=== PATIENT | male | born 1990 | race Caucasian/White ===

== ENCOUNTER 2023-02-18 12:05 | Inpatient (IN) | payer OTHER ==
--- NOTE | 2023-02-18 12:32 | ED ---
General Adult HPI - General Source: RN notes reviewed <Carolyn Agustin - Last Filed: 02/18/23 16:20> <Filipe Adams - Last Filed: 02/18/23 17:51> - General Stated complaint: swollen groin area Time Seen by Provider: 02/18/23 12:27 - History of Present Illness Initial comments: 32-year-old male presents to the emergency Department chief complaint of bilateral leg swelling. Patient reports bilateral leg swelling and genital swelling. Denies shortness of breath, cough, fever, nausea, vomiting, chest pain, palpitations, abdominal pain, melena, hematochezia, hematemesis. He r eports that he recently stopped drinking alcohol and thats when His symptoms began. Patient repeatedly denies daily alcohol use. He denies any significant known past medical history. (Carolyn Agustin) - Related Data Allergies Allergy/AdvReac Type Severity Reaction Status Date / Time No Known Allergies Allergy Verified 02/18/23 17:38 Review of Systems ROS Other: All systems not noted in ROS Statement are negative. <Carolyn Agustin - Last Filed: 02/18/23 16:20> ROS Other: All systems not noted in ROS Statement are negative. <Filipe Adams - Last Filed: 02/18/23 17:51> ROS Statement: Those systems with pertinent positive or pertinent negative responses have been documented in the HPI. General Exam <Carolyn Agustin - Last Filed: 02/18/23 16:20> - General Exam Comments Initial Comments: Visual Physical Exam Vital signs reviewed General: Well-appearing, nontoxic, no acute distress. Head: Normocephalic, atraumatic Eyes: PERRLA, EOMI ENT: Airway patent Chest: Nonlabored breathing Skin: No visual rash, normal skin tone Neuro: Alert and oriented 3 Musculoskeletal: No gross abnormalities I performed the quick note portion of this exam, verbal signature Carolyn Agustin PA-C General: Alert, in no acute distress, Jaundice Head: atraumatic normocephalic. Eyes PERRL, EOMI intact, mucous membranes moist Respiratory: Lungs clear to auscultation bilaterally Cardiovascular: Tachycardic Abdominal: Soft without guarding or rebound Extremities: Normal inspection with full range of motion and normal capillary refill Neuroogic: alert and oriented 3, CN II-XII intact, able to ambulate with steady gait Skin: warm dry and intact with normal color (Carolyn Agustin) Course <Carolyn Agustin - Last Filed: 02/18/23 16:20> Vital Signs 02/18/23 12:26 Temperature 97.9 F Pulse Rate 113 H Respiratory 18 Rate Blood Pressure 121/58 O2 Sat by Pulse 100 Oximetry - Reevaluation(s) Reevaluation #1: 02/18/23 16:11 Patient reevaluated. Rectal exam performed. No gross blood in the rectal vault. (Carolyn Agustin) Reevaluation #2: 02/18/23 16:20 Case discussed with FERNANDO Sun who agrees and assumes the care of the patient pending disposition. (Carolyn Agustin) EKG Findings - EKG Comments: EKG Findings:: Abdomen following: EKG performed at 14:30 1310 101 bpm and sinus tachycardia. FL interval 136, QRS ratio 102, QT/QTc 383/441 <Carolyn Agustin - Last Filed: 02/18/23 16:20> Medical Decision Making - Lab Data Result diagrams: 02/18/23 12:35 02/18/23 12:35 <Carolyn Agustin - Last Filed: 02/18/23 16:20> - Lab Data Result diagrams: 02/18/23 12:35 02/18/23 12:35 <Filipe Adams - Last Filed: 02/18/23 17:51> - Medical Decision Making Was pt. sent in by a medical professional or institution (, PA, CARGO WORKER, urgent care, hospital, or half-way...) When possible be specific @ -[No] Did you speak to anyone other than the patient for history (EMS, parent, family, police, friend...)? What history was obtained from this source @ -[No] Did you review nursing and triage notes (agree or disagree)? Why? @ -[I reviewed and agree with nursing and triage notes] Were old charts reviewed (outside hosp., previous admission, EMS record, old EKG, old radiological studies, urgent care reports/EKG's, half-way records)? Report findings @ -[No old charts were reviewed] Differential Diagnosis (chest pain, altered mental status, abdominal pain women, abdominal pain men, vaginal bleeding, weakness, fever, dyspnea, syncope, headache, dizziness, GI bleed, back pain, seizure, CVA, palpatations, mental health, musculoskeletal)? @ -[not applicable] EKG interpreted by me (3pts min.). @ -[As above] X-rays interpreted by me (1pt min.). @ -[None done] CT interpreted by me (1pt min.). @ -[None done] U/S interpreted by me (1pt. min.). @ -yes What testing was considered but not performed or refused? (CT, X-rays, U/S, labs)? Why? @ -[None] What meds were considered but not given or refused? Why? @ -[None] Did you discuss the management of the patient with other professionals (professionals i.e. , PA, CARGO WORKER, lab, RT, psych nurse, director of social work, narrow gauge brakeman, teacher, driver's license reviewing officer, corrections caseworker)? Give summary @ -[No] Was smoking cessation discussed for >3mins.? @ -[No] Was critical care preformed (if so, how long)? @ -[No] Were there social determinants of health that impacted care today? How? (Homelessness, low income, unemployed, alcoholism, drug addiction, transportation, low edu. Level, literacy, decrease access to med. care, [facility], rehab)? @ -[No] Was there de-escalation of care discussed even if they declined (Discuss DNR or withdrawal of care, Hospice)? DNR status @ -[No] What co-morbidities impacted this encounter? (DM, HTN, Smoking, COPD, CAD, Cancer, CVA, ARF, Chemo, Hep., AIDS, mental health diagnosis, sleep apnea, morbid obesity)? @ -Daily alcohol use Was patient admitted / discharged? Hospital course, mention meds given and route, prescriptions, significant lab abnormalities, going to OR and other pertinent info. Disposition pending. This is a 32-year-old male who presents the emergency department with L leg edema. Patient had a thorough history and physical exam performed. Patient appears jaundiced however in no acute distress. Bilateral lower extremities including genitals with edema. Patient initially tachycardic however all other vital signs stable Patient had laboratory studies which revealed WBC 4.0 hemoglobin 5.4 hematocrit 20.2 platelets 21.9 PT 17.5, INR 1.8 sodium 139, potassium 2.0 BUN 4, creatinine 0.65 initial lactic acid 2.1 total bilirubin 3.2 alk phos 258 BNP 145, albumin 2.4. Ultrasound of the liver reveals hepatic cirrhosis with steatosis and small amount of abdominal ascites I discussed initial results with the patient. All questions were addressed. One unit of blood ordered, patient given oral potassium. Case will be signed out to Dr. Adams who will assume care of the patient pending additional laboratory studies. (Carolyn Agustin) Patient reevaluated by myself, Dr. Adams. Patient resting comfortably in bed. Patient does have lower body edema. Patient is updated on results and plan. Patient has anemia. Occult negative. Patient will receive blood transfusion. Case was discussed in detail with practitioner Erica, who will admit covering Dr. Kauffman. Diagnosis: Anemia, leg edema Acute, acute (Filipe Adams) - Lab Data Lab Results 02/18/23 02/18/23 02/18/23 Range/Units 12:35 12:35 12:35 WBC 4.0 (3.8-10.6) k/uL RBC 2.79 L (4.30-5.90) m/uL Hgb 5.4 L* (13.0-17.5) gm/dL Hct 20.2 L (39.0-53.0) % MCV 72.5 L (80.0-100.0) fL MCH 19.2 L (25.0-35.0) pg MCHC 26.5 L (31.0-37.0) g/dL RDW 21.9 H (11.5-15.5) % Plt Count 85 L (150-450) k/uL MPV 7.2 Neutrophils % 47 % Lymphocytes % 36 % Monocytes % 9 % Eosinophils % 5 % Basophils % 1 % Neutrophils # 1.8 (1.3-7.7) k/uL Lymphocytes # 1.4 (1.0-4.8) k/uL Monocytes # 0.3 (0-1.0) k/uL Eosinophils # 0.2 (0-0.7) k/uL Basophils # 0.0 (0-0.2) k/uL Manual Slide Review Performed Hypochromasia Marked Poikilocytosis (manual Present Anisocytosis Moderate Microcytosis Marked PT 17.5 H (9.0-12.0) sec INR 1.8 H (<1.2) APTT 29.5 (22.0-30.0) sec Sodium 139 (137-145) mmol/L Potassium 3.0 L (3.5-5.1) mmol/L Chloride 107 (98-107) mmol/L Carbon Dioxide 24 (22-30) mmol/L Anion Gap 8 mmol/L BUN 4 L (9-20) mg/dL Creatinine 0.65 L (0.66-1.25) mg/dL Est GFR (CKD-EPI)AfAm >90 (>60 ml/min/1.73 sqM) Est GFR (CKD-EPI)NonAf >90 (>60 ml/min/1.73 sqM) Glucose 110 H (74-99) mg/dL Lactic Ac Sepsis Rflx Plasma Lactic Acid Daron (0.7-2.0) mmol/L Calcium 7.7 L (8.4-10.2) mg/dL Total Bilirubin 3.2 H (0.2-1.3) mg/dL AST 91 H (17-59) U/L ALT 28 (4-49) U/L Alkaline Phosphatase 258 H (38-126) U/L NT-Pro-B Natriuret Pep 145 pg/mL Total Protein 6.4 (6.3-8.2) g/dL Albumin 2.4 L (3.5-5.0) g/dL Stool Occult Blood (Negative) Blood Type Blood Type Confirm Blood Type Recheck Bld Type Recheck Status Antibody Screen Spec Expiration Date 02/18/23 02/18/23 02/18/23 Range/Units 14:25 14:32 14:52 WBC (3.8-10.6) k/uL RBC (4.30-5.90) m/uL Hgb (13.0-17.5) gm/dL Hct (39.0-53.0) % MCV (80.0-100.0) fL MCH (25.0-35.0) pg MCHC (31.0-37.0) g/dL RDW (11.5-15.5) % Plt Count (150-450) k/uL MPV Neutrophils % % Lymphocytes % % Monocytes % % Eosinophils % % Basophils % % Neutrophils # (1.3-7.7) k/uL Lymphocytes # (1.0-4.8) k/uL Monocytes # (0-1.0) k/uL Eosinophils # (0-0.7) k/uL Basophils # (0-0.2) k/uL Manual Slide Review Hypochromasia Poikilocytosis (manual Anisocytosis Microcytosis PT (9.0-12.0) sec INR (<1.2) APTT (22.0-30.0) sec Sodium (137-145) mmol/L Potassium (3.5-5.1) mmol/L Chloride (98-107) mmol/L Carbon Dioxide (22-30) mmol/L Anion Gap mmol/L BUN (9-20) mg/dL Creatinine (0.66-1.25) mg/dL Est GFR (CKD-EPI)AfAm (>60 ml/min/1.73 sqM) Est GFR (CKD-EPI)NonAf (>60 ml/min/1.73 sqM) Glucose (74-99) mg/dL Lactic Ac Sepsis Rflx Plasma Lactic Acid Daron 2.1 H* (0.7-2.0) mmol/L Calcium (8.4-10.2) mg/dL Total Bilirubin (0.2-1.3) mg/dL AST (17-59) U/L ALT (4-49) U/L Alkaline Phosphatase (38-126) U/L NT-Pro-B Natriuret Pep pg/mL Total Protein (6.3-8.2) g/dL Albumin (3.5-5.0) g/dL Stool Occult Blood (Negative) Blood Type B Positive Blood Type Confirm B Positive Blood Type Recheck No Previous Record Bld Type Recheck Status CABO Indicated Antibody Screen NEGATIVE Spec Expiration Date 02/21/2023 - 232402/18/23 02/18/23 Range/Units 15:45 16:15 WBC (3.8-10.6) k/uL RBC (4.30-5.90) m/uL Hgb (13.0-17.5) gm/dL Hct (39.0-53.0) % MCV (80.0-100.0) fL MCH (25.0-35.0) pg MCHC (31.0-37.0) g/dL RDW (11.5-15.5) % Plt Count (150-450) k/uL MPV Neutrophils % % Lymphocytes % % Monocytes % % Eosinophils % % Basophils % % Neutrophils # (1.3-7.7) k/uL Lymphocytes # (1.0-4.8) k/uL Monocytes # (0-1.0) k/uL Eosinophils # (0-0.7) k/uL Basophils # (0-0.2) k/uL Manual Slide Review Hypochromasia Poikilocytosis (manual Anisocytosis Microcytosis PT (9.0-12.0) sec INR (<1.2) APTT (22.0-30.0) sec Sodium (137-145) mmol/L Potassium (3.5-5.1) mmol/L Chloride (98-107) mmol/L Carbon Dioxide (22-30) mmol/L Anion Gap mmol/L BUN (9-20) mg/dL Creatinine (0.66-1.25) mg/dL Est GFR (CKD-EPI)AfAm (>60 ml/min/1.73 sqM) Est GFR (CKD-EPI)NonAf (>60 ml/min/1.73 sqM) Glucose (74-99) mg/dL Lactic Ac Sepsis Rflx Y Plasma Lactic Acid Daron (0.7-2.0) mmol/L Calcium (8.4-10.2) mg/dL Total Bilirubin (0.2-1.3) mg/dL AST (17-59) U/L ALT (4-49) U/L Alkaline Phosphatase (38-126) U/L NT-Pro-B Natriuret Pep pg/mL Total Protein (6.3-8.2) g/dL Albumin (3.5-5.0) g/dL Stool Occult Blood Negative (Negative) Blood Type Blood Type Confirm Blood Type Recheck Bld Type Recheck Status Antibody Screen Spec Expiration Date Disposition <Carolyn Agustin - Last Filed: 02/18/23 16:20> Is patient prescribed a controlled substance at d/c from ED?: No Time of Disposition: 17:51 <Filipe Adams - Last Filed: 02/18/23 17:51> Clinical Impression: Cirrhosis, Bilateral leg edema, Anemia Disposition: ADMITTED IP TO THIS HOSP Referrals: Nonstaff,Physician [Primary Care Provider] - 1-2 days
[2023-02-18 12:48] LABS: Anisocytosis Moderate; Basophils % (A) 1 %; Eosinophils # (A) 0.2 k/uL (0-0.7); Eosinophils % (A) 5 %; HCT 20.2 % (39.0-53.0); Hypochromasia Marked; Lymphocytes # (A) 1.4 k/uL (1.0-4.8); Lymphocytes % (A) 36 %; MCH 19.2 pg (25.0-35.0); MCHC 26.5 g/dL (31.0-37.0); MCV 72.5 fL (80.0-100.0); Mean Platelet Volume 7.2; Microcytosis Marked; Monocytes # (A) 0.3 k/uL (0-1.0); Monocytes % (A) 9 %; Neutrophils # (A) 1.8 k/uL (1.3-7.7); Neutrophils % (A) 47 %; RBC 2.79 m/uL (4.30-5.90); RDW 21.9 % (11.5-15.5)
[2023-02-18 13:02] LABS: INR 1.8 (<1.2); Partial Thromboplastin Time 29.5 sec (22.0-30.0); Prothrombin Time 17.5 sec (9.0-12.0)
[2023-02-18 13:08] LABS: ALT 28 U/L (4-49); AST 91 U/L (17-59); African American GFR (CKD) >90 (>60 ml/min/1.73 sqM); Albumin 2.4 g/dL (3.5-5.0); Alkaline Phosphatase 258 U/L (38-126); Anion Gap 8 mmol/L; Blood Urea Nitrogen 4 mg/dL (9-20); Calcium 7.7 mg/dL (8.4-10.2); Carbon Dioxide 24 mmol/L (22-30); Chloride 107 mmol/L (98-107); Glucose 110 mg/dL (74-99); Non-African American GFR(CKD) >90 (>60 ml/min/1.73 sqM); Sodium 139 mmol/L (137-145); Total Bilirubin 3.2 mg/dL (0.2-1.3); Total Protein 6.4 g/dL (6.3-8.2)
[2023-02-18 13:15] LABS: NT-Pro-B-Type Natriuretic Pept 145 pg/mL
[2023-02-18 13:29] LABS: HGB 5.4 gm/dL (13.0-17.5)
[2023-02-18 14:30] LABS: Platelet Count 85 k/uL (150-450)
[2023-02-18 14:36] LABS: Poikilocytosis (M) Present
--- NOTE | 2023-02-18 16:01 | US ---
EXAMINATION TYPE: US liver DATE OF EXAM: 02/18/2023 COMPARISON: NONE CLINICAL INDICATION: Male, 32 years old with history of Elevated liver enzymes; Elevated liver enzyme s Exam limitations due to body habitus. TECHNIQUE: Multiple sonographic images of the right upper quadrant are obtained. FINDINGS: EXAM MEASUREMENTS: Liver Length: 16.9 cm Gallbladder Wall: .5 cm CBD: .5 cm Right Kidney: 9.4 x 4.2 x 5.3 cm Pancreas: Obscured by bowel gas Liver: Increased attenuation limited ascites seen. Nodular contour no suspicious observations. Gallbladder: Stones visualized Evidence for sonographic Arevalo's sign: No CBD: Limited due to bowel gas Right Kidney: No hydronephrosis or masses seen IMPRESSION: 1. Hepatic cirrhosis with steatosis and small abdominal ascites, correlate for liver failure. 2. Cholelithiasis.
[2023-02-18] MEDS ORDERED: POTASSIUM CHLORIDE ER 20 MEQ TAB.ER PO STA (16:18)
[2023-02-18] MEDS ORDERED: NALOXONE 0.4 MG/ML 1 ML VIAL IV PRN (17:52)
[2023-02-18 18:09] LABS: Albumin 2.3 g/dL (3.5-5.0); Magnesium 1.6 mg/dL (1.6-2.3); Total Protein 6.5 g/dL (6.3-8.2)
[2023-02-18 18:32] LABS: Reticulocyte % 2.3 % (0.5-2.0)
[2023-02-18] MEDS: PANTOPRAZOLE 40 MG/10 ML VIAL IV SCH (20:43)
[2023-02-19 02:52] LABS: Ferritin 9.3 ng/mL (22.0-322.0)
[2023-02-19] MEDS: PANTOPRAZOLE 40 MG/10 ML VIAL IV SCH (08:05)
[2023-02-19 11:30] LABS: Anisocytosis Moderate; HCT 24.8 % (39.0-53.0); Hypochromasia Marked; MCH 22.5 pg (25.0-35.0); MCHC 28.4 g/dL (31.0-37.0); Microcytosis Moderate; Poikilocytosis Marked; RBC 3.14 m/uL (4.30-5.90); WBC 3.5 k/uL (3.8-10.6)
[2023-02-19 11:39] LABS: ALT 25 U/L (4-49); AST 68 U/L (17-59); African American GFR (CKD) >90 (>60 ml/min/1.73 sqM); Alkaline Phosphatase 172 U/L (38-126); Anion Gap 7 mmol/L; Blood Urea Nitrogen 5 mg/dL (9-20); Calcium 7.5 mg/dL (8.4-10.2); Carbon Dioxide 23 mmol/L (22-30); Chloride 105 mmol/L (98-107); Glucose 143 mg/dL (74-99); Non-African American GFR(CKD) >90 (>60 ml/min/1.73 sqM); Potassium 3.1 mmol/L (3.5-5.1); Sodium 135 mmol/L (137-145); Total Bilirubin 4.5 mg/dL (0.2-1.3); Total Protein 5.7 g/dL (6.3-8.2)
[2023-02-19] MEDS ORDERED: POTASSIUM CHLORIDE ER 20 MEQ TAB.ER PO STA (11:48)
--- NOTE | 2023-02-19 12:00 | P.HPIM ---
History of Present Illness 32-year-old male with a history of chronic alcoholism drinks about to 5 mixed drinks a day, last drink was couple days ago, denied any history of alcohol withdrawals came in with the complaints of bilateral leg swelling and scrotal e melody has been going on for last few days without any shortness of breath, orthopnea proximal nocturnal dyspnea. Patient denied any abdominal pain. Patient denied any hematemesis hematochezia or hemoptysis. Patient is found to have elevated INR 1.8, ultrasound of the liver showed gallstones. Patient denied any nausea vomiting. Patient globin is elevated to around 3. Patient is also hypokalemic with magnesium of 1.6. Patient is found to have hemoglobin of 5.6 microcytic, patient is also pancytopenic REVIEW OF SYSTEMS: CONSTITUTIONAL: No fever, no malaise, no fatigue. HEENT: No recent visual problems or hearing problems. Denied any sore throat. CARDIOVASCULAR: No chest pain, orthopnea, PND, no palpitations, no syncope. PULMONARY: No shortness of breath, no cough, no hemoptysis. GASTROINTESTINAL: No diarrhea, no nausea, no vomiting, no abdominal pain. NEUROLOGICAL: No headaches, no weakness, no numbness. HEMATOLOGICAL: Denies any bleeding or petechiae. GENITOURINARY: Denies any burning micturition, frequency, or urgency. MUSCULOSKELETAL/RHEUMATOLOGICAL: Denies any joint pain, swelling, or any muscle pain. ENDOCRINE: Denies any polyuria or polydipsia. The rest of the 14-point review of systems is negative. PHYSICAL EXAMINATION: GENERAL: The patient is alert and oriented x3, not in any acute distress. Well developed, well nourished. HEENT: Pupils are round and equally reacting to light. EOMI. does have scleral icterus. Does have conjunctival pallor. Normocephalic, atraumatic. No pharyngeal erythema. No thyromegaly. CARDIOVASCULAR: S1 and S2 present. No murmurs, rubs, or gallops. PULMONARY: Chest is clear to auscultation, no wheezing or crackles. ABDOMEN: Soft, nontender, nondistended, normoactive bowel sounds. No palpable organomegaly. Mild abdominal ascites MUSCULOSKELETAL: No joint swelling or deformity. EXTREMITIES: No cyanosis, clubbing, or significant bilateral scrotal swelling NEUROLOGICAL: Gross neurological examination did not reveal any focal deficits. SKIN: No rashes. Assessment and plan -Scrotal edema, anasarca: Secondary to volume more about from alcoholic cirrhosis. Extensive alcohol cessation counseling was provided. Patient was started on IV Lasix and replace potassium and magnesium. -Hypomagnesemia: Secondary to alcoholism -Hypokalemia secondary to alcoholism and hypomagnesemia potassium will be replaced expected to be low tomorrow because of IV Lasix. -Alcohol dependence: Counseling was provided do not expect any withdrawals for the patient. -Pancytopenia secondary to liver disease, will obtain B12 and folate levels -Microcytic anemia probably nutritional iron Deficiency denied any GI bleed at this time, we'll obtain ferritin and TIBC DVT prophylaxis: Early ambulation, will not require thoracotomy due to prophylaxis as patient is not anticoagulated with INR of 1.8 Past Medical History Additional Past Medical History / Comment(s): alcoholism History of Any Multi-Drug Resistant Organisms: None Reported Past Surgical History: No Surgical Hx Reported Past Anesthesia/Blood Transfusion Reactions: No Reported Reaction Past Psychological History: No Psychological Hx Reported Smoking Status: Current every day smoker Past Alcohol Use History: Abuse, Daily Past Drug Use History: None Reported Medications and Allergies Home Medications Medication Instructions Recorded Confirmed Type No Known Home Medications 02/18/23 02/18/23 History Allergies Allergy/AdvReac Type Severity Reaction Status Date / Time No Known Allergies Allergy Verified 02/18/23 17:38 Physical Exam Vitals: Vital Signs Temp Pulse Pulse Resp BP BP Pulse Ox 02/19/23 07:58 98.0 F 95 17 141/78 98 02/19/23 04:00 92 16 138/80 100 02/19/23 02:32 88 16 144/80 99 02/19/23 00:00 93 17 127/77 100 02/18/23 23:18 95 16 132/78 02/18/23 22:58 98.2 F 76 17 124/74 02/18/23 22:42 98.1 F 101 H 16 145/76 100 02/18/23 20:27 98.1 F 83 18 144/78 100 02/18/23 19:40 98 19 159/63 99 02/18/23 19:09 98.0 F 93 18 152/75 99 02/18/23 18:49 98.2 F 95 18 143/79 100 02/18/23 18:39 98.3 F 92 18 130/70 100 02/18/23 18:00 96 18 128/68 100 02/18/23 15:00 92 18 130/74 98 02/18/23 14:00 94 18 136/86 99 02/18/23 12:26 97.9 F 113 H 18 121/58 100 Intake and Output 02/18/23 02/19/23 02/19/23 22:59 06:59 14:59 Intake Total 310 310 180 Balance 310 310 180 Intake: Oral 180 Blood Product 310 310 Rc As-1 Unit 310 [id number] Rc As-1 Unit 0 310 [id number] Other: Voiding Method Toilet Toilet # Voids 1 1 Weight 86.183 kg 108 kg Results CBC & Chem 7: 02/18/23 12:35 02/19/23 09:40 Labs: Abnormal Lab Results - Last 24 Hours (Table) 02/18/23 02/18/23 02/18/23 Range/Units 12:35 12:35 12:35 RBC 2.79 L (4.30-5.90) m/uL Hgb 5.4 L* (13.0-17.5) gm/dL Hct 20.2 L (39.0-53.0) % MCV 72.5 L (80.0-100.0) fL MCH 19.2 L (25.0-35.0) pg MCHC 26.5 L (31.0-37.0) g/dL RDW 21.9 H (11.5-15.5) % Plt Count 85 L (150-450) k/uL Retic Count (0.5-2.0) % PT 17.5 H (9.0-12.0) sec INR 1.8 H (<1.2) Sodium (137-145) mmol/L Potassium 3.0 L (3.5-5.1) mmol/L BUN 4 L (9-20) mg/dL Creatinine 0.65 L (0.66-1.25) mg/dL Glucose 110 H (74-99) mg/dL Plasma Lactic Acid Daron (0.7-2.0) mmol/L Calcium 7.7 L (8.4-10.2) mg/dL Iron (65-175) UG/DL Ferritin (22.0-322.0) ng/mL Total Bilirubin 3.2 H (0.2-1.3) mg/dL Delta Bilirubin (0.0-0.2) mg/dL AST 91 H (17-59) U/L Alkaline Phosphatase 258 H (38-126) U/L Total Protein (6.3-8.2) g/dL Albumin 2.4 L (3.5-5.0) g/dL Crossmatch 02/18/23 02/18/23 02/18/23 Range/Units 12:35 14:25 14:52 RBC (4.30-5.90) m/uL Hgb (13.0-17.5) gm/dL Hct (39.0-53.0) % MCV (80.0-100.0) fL MCH (25.0-35.0) pg MCHC (31.0-37.0) g/dL RDW (11.5-15.5) % Plt Count (150-450) k/uL Retic Count 2.3 H (0.5-2.0) % PT (9.0-12.0) sec INR (<1.2) Sodium (137-145) mmol/L Potassium (3.5-5.1) mmol/L BUN (9-20) mg/dL Creatinine (0.66-1.25) mg/dL Glucose (74-99) mg/dL Plasma Lactic Acid Daron 2.1 H* (0.7-2.0) mmol/L Calcium (8.4-10.2) mg/dL Iron (65-175) UG/DL Ferritin (22.0-322.0) ng/mL Total Bilirubin (0.2-1.3) mg/dL Delta Bilirubin (0.0-0.2) mg/dL AST (17-59) U/L Alkaline Phosphatase (38-126) U/L Total Protein (6.3-8.2) g/dL Albumin (3.5-5.0) g/dL Crossmatch See Detail 02/18/23 02/18/23 02/18/23 Range/Units 16:01 16:28 18:29 RBC (4.30-5.90) m/uL Hgb (13.0-17.5) gm/dL Hct (39.0-53.0) % MCV (80.0-100.0) fL MCH (25.0-35.0) pg MCHC (31.0-37.0) g/dL RDW (11.5-15.5) % Plt Count (150-450) k/uL Retic Count (0.5-2.0) % PT (9.0-12.0) sec INR (<1.2) Sodium (137-145) mmol/L Potassium (3.5-5.1) mmol/L BUN (9-20) mg/dL Creatinine (0.66-1.25) mg/dL Glucose (74-99) mg/dL Plasma Lactic Acid Daron 2.4 H* (0.7-2.0) mmol/L Calcium (8.4-10.2) mg/dL Iron 9 L (65-175) UG/DL Ferritin 9.3 L (22.0-322.0) ng/mL Total Bilirubin 3.0 H (0.2-1.3) mg/dL Delta Bilirubin 2.0 H (0.0-0.2) mg/dL AST 85 H (17-59) U/L Alkaline Phosphatase 253 H (38-126) U/L Total Protein (6.3-8.2) g/dL Albumin 2.3 L (3.5-5.0) g/dL Crossmatch 02/19/23 Range/Units 09:40 RBC (4.30-5.90) m/uL Hgb (13.0-17.5) gm/dL Hct (39.0-53.0) % MCV (80.0-100.0) fL MCH (25.0-35.0) pg MCHC (31.0-37.0) g/dL RDW (11.5-15.5) % Plt Count (150-450) k/uL Retic Count (0.5-2.0) % PT (9.0-12.0) sec INR (<1.2) Sodium 135 L (137-145) mmol/L Potassium 3.1 L (3.5-5.1) mmol/L BUN 5 L (9-20) mg/dL Creatinine 0.61 L (0.66-1.25) mg/dL Glucose 143 H (74-99) mg/dL Plasma Lactic Acid Daron (0.7-2.0) mmol/L Calcium 7.5 L (8.4-10.2) mg/dL Iron (65-175) UG/DL Ferritin (22.0-322.0) ng/mL Total Bilirubin 4.5 H (0.2-1.3) mg/dL Delta Bilirubin (0.0-0.2) mg/dL AST 68 H (17-59) U/L Alkaline Phosphatase 172 H (38-126) U/L Total Protein 5.7 L (6.3-8.2) g/dL Albumin 2.0 L (3.5-5.0) g/dL Crossmatch Thrombosis Risk Factor Assmnt - Choose All That Apply Any of the Below Risk Factors Present?: Yes Each Factor Represents 1 point: Swollen legs (current) Other Risk Factors: No Other congenital or acquired thrombophilia - If yes, enter type in comment: No Thrombosis Risk Factor Assessment Total Risk Factor Score: 1 Thrombosis Risk Factor Assessment Level: Low Risk
[2023-02-19 12:39] LABS: Platelet Count 74 k/uL (150-450)
[2023-02-19 12:40] LABS: MCV 79.1 fL (80.0-100.0)
[2023-02-19] MEDS: FUROSEMIDE 10 MG/ML 4 ML VIAL IV SCH ×2 (12:41→20:30)
[2023-02-19 14:04] LABS: Basophils # (M) 0.04 k/uL (0-0.2); Eosinophils # (M) 0.18 k/uL (0-0.7); Lymphocytes # (M) 0.98 k/uL (1.0-4.8); Monocytes # (M) 0.25 k/uL (0-1.0); Neutrophils # (M) 2.07 k/uL (1.3-7.7); Neutrophils % (M) 59 %; Nucleated Red Blood Cells 0 /100 WBC (0-0); Total Cells Counted 100
[2023-02-19 16:44] LABS: % Iron Saturation 19.05 (15.00-50.00)
[2023-02-20 04:41] VITALS: RESP 18
[2023-02-20] MEDS: FUROSEMIDE 10 MG/ML 4 ML VIAL IV SCH (07:36)
[2023-02-20] MEDS: PANTOPRAZOLE 40 MG/10 ML VIAL IV SCH (07:36)
[2023-02-20 08:43] LABS: Anisocytosis Moderate; HCT 30.6 % (39.0-53.0); Hypochromasia Marked; MCH 22.3 pg (25.0-35.0); MCHC 28.9 g/dL (31.0-37.0); MCV 77.1 fL (80.0-100.0); Mean Platelet Volume 7.3; Microcytosis Moderate; Poikilocytosis Marked; RBC 3.97 m/uL (4.30-5.90); RDW 21.7 % (11.5-15.5); WBC 4.8 k/uL (3.8-10.6)
[2023-02-20 08:44] LABS: HGB 8.9 gm/dL (13.0-17.5)
[2023-02-20 08:45] LABS: Platelet Count 89 k/uL (150-450)
[2023-02-20 08:53] LABS: ALT 26 U/L (4-49); AST 73 U/L (17-59); African American GFR (CKD) >90 (>60 ml/min/1.73 sqM); Albumin 2.3 g/dL (3.5-5.0); Alkaline Phosphatase 190 U/L (38-126); Anion Gap 9 mmol/L; Blood Urea Nitrogen 5 mg/dL (9-20); Calcium 8.1 mg/dL (8.4-10.2); Carbon Dioxide 25 mmol/L (22-30); Chloride 102 mmol/L (98-107); Glucose 93 mg/dL (74-99); Non-African American GFR(CKD) >90 (>60 ml/min/1.73 sqM); Potassium 3.2 mmol/L (3.5-5.1); Sodium 136 mmol/L (137-145); Total Bilirubin 6.3 mg/dL (0.2-1.3); Total Protein 6.6 g/dL (6.3-8.2)
[2023-02-20] MEDS ORDERED: Potassium Replacement Protocol 1 EACH MISC MISCELLANE PRN (10:01)
[2023-02-20] MEDS: POTASSIUM CHLORIDE ER 20 MEQ TAB.ER PO SCH ×4 (10:20→15:35)
[2023-02-20 13:10] VITALS: BP 136/84; PULSE 95; TEMP 98.2
== END 2023-02-20 18:05 | disposition home or self-care (01) | DRG 433 ==
LOC: EC 12:05 → 3SCARD 17:52
PROVIDERS: ADMIT Hospitalist; ATTEND Hospitalist
DX: K70.31 Alcoholic cirrhosis of liver with ascites (principal); D61.818 Other pancytopenia; K80.20 Calculus of gallbladder without cholecystitis without obstruction; N50.89 Other specified disorders of the male genital organs; R79.1 Abnormal coagulation profile; E83.42 Hypomagnesemia; E87.6 Hypokalemia; F10.20 Alcohol dependence, uncomplicated; F17.210 Nicotine dependence, cigarettes, uncomplicated; Z71.41 Alcohol abuse counseling and surveillance of alcoholic; D53.9 Nutritional anemia, unspecified
CPT/HCPCS: 36415; 36430; 76705; 80053; 80076; 82272; 82607; 82728; 82746; 83540; 83550; 83605; 83735; 83880; 85025; 85027; 85045; 85610; 85730; 86850; 86900; 86901; 86920; 99285

== ENCOUNTER 2024-08-06 06:41 | Inpatient (IN) | payer OTHER ==
--- NOTE | 2024-08-06 07:48 | XR ---
EXAMINATION TYPE: XR chest 2V DATE OF EXAM: 08/06/2024 7:44 AM COMPARISON: None TECHNIQUE: XR chest 2V Frontal and lateral views of the chest. CLINICAL INDICATION:Male, 33 years old with history of sob; FINDINGS: Lungs/Pleura: There is no evidence of pleural effusion, focal consolidation, or pneumothorax. Pulmonary vascularity: Unremarkable. Heart/mediastinum: Cardiomediastinal silhouette is unremarkable. Musculoskeletal: No acute osseous pathology. IMPRESSION: No acute cardiopulmonary disease/process. [facility], , 08/06/2024 7:46 AM
--- NOTE | 2024-08-06 08:35 | ED ---
SOB HPI - General Chief Complaint: Shortness of Breath Stated Complaint: RITU Time Seen by Provider: 08/06/24 07:48 Source: patient Mode of arrival: ambulatory Limitations: no limitations - History of Present Illness Initial Comments: 33-year-old male with past medical history of alcohol abuse who presents to the emergency department reporting shortness of breath. States this started last night. He was having difficulties laying flat to sleep. He does report that he was hospitalized several years ago for rapid heart rate and was placed on 2 medications to "help his heart". He knows that one of them was a water pill. He stopped taking them several years ago without direction by a physician. He does admit to continued drinking. States his last drink was on Friday and he drinks approximately 3/4th of 5th of alcohol. He does have intermittent swelling of his lower extremities. Denies any significant abdominal distention. No chest pain. No abdominal pain. no nausea or vomiting. Denies fevers, chills or cough. No history of DVT or PE. No calf pain. No other alleviating, precipitating or modifying factors - Related Data Previous Rx's Medication Instructions Recorded Furosemide [Lasix] 40 mg PO DAILY #30 tablet 02/20/23 Spironolactone [Aldactone] 25 mg PO DAILY #30 tablet 02/20/23 Allergies Allergy/AdvReac Type Severity Reaction Status Date / Time No Known Allergies Allergy Verified 08/06/24 07:00 Review of Systems ROS Statement: Those systems with pertinent positive or pertinent negative responses have been documented in the HPI. ROS Other: All systems not noted in ROS Statement are negative. Past Medical History Additional Past Medical History / Comment(s): alcoholism , edema, jaundice History of Any Multi-Drug Resistant Organisms: None Reported Past Surgical History: Adenoidectomy Additional Past Surgical History / Comment(s): cyst Past Anesthesia/Blood Transfusion Reactions: No Reported Reaction Past Psychological History: No Psychological Hx Reported Smoking Status: Vaper Past Alcohol Use History: Abuse, Daily Past Drug Use History: None Reported General Exam Limitations: no limitations Course Vital Signs 08/06/24 08/06/24 07:00 09:05 Temperature 97.6 F Pulse Rate 96 75 Respiratory 18 19 Rate Blood Pressure 169/77 138/113 O2 Sat by Pulse 99 98 Oximetry Medical Decision Making - Medical Decision Making Was pt. sent in by a medical professional or institution (Dr., PA, MACHINE DESIGN ENGINEER, urgent care, hospital, or penitentiary...) When possible be specific @ -[No] Did you speak to anyone other than the patient for history (EMS, parent, family, police, friend...)? What history was obtained from this source @ -[No] Did you review nursing and triage notes (agree or disagree)? Why? @ -[I reviewed and agree with nursing and triage notes] Were old charts reviewed (outside hosp., previous admission, EMS record, old EKG, old radiological studies, urgent care reports/EKG's, penitentiary records)? Report findings @ -[No old charts were reviewed] Differential Diagnosis (chest pain, altered mental status, abdominal pain women, abdominal pain men, vaginal bleeding, weakness, fever, dyspnea, syncope, headache, dizziness, GI bleed, back pain, seizure, CVA, palpatations, mental health, musculoskeletal)? @ -[not applicable] EKG interpreted by me (3pts min.). @ -Yes and demonstrates sinus rhythm with a rate of 79. [place] interval 174. QRS 111. QTc of 463. No acute ST segment elevations or depressions X-rays interpreted by me (1pt min.). @ -[None done] CT interpreted by me (1pt min.). @ -[None done] U/S interpreted by me (1pt. min.). @ -[None done] What testing was considered but not performed or refused? (CT, X-rays, U/S, labs)? Why? @ -[None] What meds were considered but not given or refused? Why? @ -[None] Did you discuss the management of the patient with other professionals (professionals i.e. JAY Xiong, MACHINE DESIGN ENGINEER, lab, RT, psych nurse, web content & social media manager, seafood technology specialist, teacher, campus security officer, telephonic nurse case manager)? Give summary @ -[No] Was smoking cessation discussed for >3mins.? @ -[No] Was critical care preformed (if so, how long)? @ -[No] Were there social determinants of health that impacted care today? How? (Homelessness, low income, unemployed, alcoholism, drug addiction, transportation, low edu. Level, literacy, decrease access to med. care, prison, rehab)? @ -[No] Was there de-escalation of care discussed even if they declined (Discuss DNR or withdrawal of care, Hospice)? DNR status @ -[No] What co-morbidities impacted this encounter? (DM, HTN, Smoking, COPD, CAD, Cancer, CVA, ARF, Chemo, Hep., AIDS, mental health diagnosis, sleep apnea, morbid obesity)? @ -[None] Was patient admitted / discharged? Hospital course, mention meds given and route, prescriptions, significant lab abnormalities, going to OR and other p ertinent info. @ -[hospital course] Undiagnosed new problem with uncertain prognosis? @ -[No] Drug Therapy requiring intensive monitoring for toxicity (Heparin, Nitro, Insulin, Cardizem)? @ -[No] Were any procedures done? @ -[No] Diagnosis/symptom? @ -[default] Acute, or Chronic, or Acute on Chronic? @ -[default] Uncomplicated (without systemic symptoms) or Complicated (systemic symptoms)? @ -[default] Side effects of treatment? @ -[No] Exacerbation, Progression, or Severe Exacerbation? @ -[No] Poses a threat to life or bodily function? How? (Chest pain, [place], [place], pneumonia, PE, COPD, DKA, ARF, appy, cholecystitis, CVA, Diverticulitis, Homicidal, Suicidal, threat to staff... and all critical care pts) @ -[No] - Lab Data Result diagrams: 08/06/24 08:08 08/06/24 08:08 Lab Results 08/06/24 08/06/24 08/06/24 Range/Units 08:08 08:08 08:08 WBC 3.9 (3.8-10.6) k/uL RBC 3.68 L (4.30-5.90) m/uL Hgb 9.5 L (13.0-17.5) gm/dL Hct 30.3 L (39.0-53.0) % MCV 82.4 (80.0-100.0) fL MCH 25.7 (25.0-35.0) pg MCHC 31.2 (31.0-37.0) g/dL RDW 20.9 H (11.5-15.5) % Plt Count 23 L (150-450) k/uL MPV 7.6 Neutrophils % 58 % Lymphocytes % 23 % Monocytes % 12 % Eosinophils % 2 % Basophils % 1 % Neutrophils # 2.2 (1.3-7.7) k/uL Lymphocytes # 0.9 L (1.0-4.8) k/uL Monocytes # 0.5 (0-1.0) k/uL Eosinophils # 0.1 (0-0.7) k/uL Basophils # 0.0 (0-0.2) k/uL Manual Slide Review Performed Hypochromasia Marked Anisocytosis Moderate Anisocytosis (manual) Present Microcytosis Slight Target Cells Present PT 22.4 H (10.0-12.5) sec INR 2.2 H (<1.2) APTT 38.2 H (22.0-30.0) sec Sodium 136 L (137-145) mmol/L Potassium 2.8 L (3.5-5.1) mmol/L Chloride 99 (98-107) mmol/L Carbon Dioxide 30 (22-30) mmol/L Anion Gap 7 mmol/L BUN 8 L (9-20) mg/dL Creatinine 0.72 (0.66-1.25) mg/dL Est GFR (CKD-EPI)AfAm >90 (>60 ml/min/1.73 sqM) Est GFR (CKD-EPI)NonAf >90 (>60 ml/min/1.73 sqM) Glucose 133 H (74-99) mg/dL Calcium 7.9 L (8.4-10.2) mg/dL Total Bilirubin 9.1 H (0.2-1.3) mg/dL AST 164 H (17-59) U/L ALT 49 (4-49) U/L Alkaline Phosphatase 394 H (38-126) U/L Troponin I (0.000-0.034) ng/mL NT-Pro-B Natriuret Pep 102 pg/mL Total Protein 6.4 (6.3-8.2) g/dL Albumin 2.5 L (3.5-5.0) g/dL Serum Alcohol 88 mg/dL 08/06/24 Range/Units 08:08 WBC (3.8-10.6) k/uL RBC (4.30-5.90) m/uL Hgb (13.0-17.5) gm/dL Hct (39.0-53.0) % MCV (80.0-100.0) fL MCH (25.0-35.0) pg MCHC (31.0-37.0) g/dL RDW (11.5-15.5) % Plt Count (150-450) k/uL MPV Neutrophils % % Lymphocytes % % Monocytes % % Eosinophils % % Basophils % % Neutrophils # (1.3-7.7) k/uL Lymphocytes # (1.0-4.8) k/uL Monocytes # (0-1.0) k/uL Eosinophils # (0-0.7) k/uL Basophils # (0-0.2) k/uL Manual Slide Review Hypochromasia Anisocytosis Anisocytosis (manual) Microcytosis Target Cells PT (10.0-12.5) sec INR (<1.2) APTT (22.0-30.0) sec Sodium (137-145) mmol/L Potassium (3.5-5.1) mmol/L Chloride (98-107) mmol/L Carbon Dioxide (22-30) mmol/L Anion Gap mmol/L BUN (9-20) mg/dL Creatinine (0.66-1.25) mg/dL Est GFR (CKD-EPI)AfAm (>60 ml/min/1.73 sqM) Est GFR (CKD-EPI)NonAf (>60 ml/min/1.73 sqM) Glucose (74-99) mg/dL Calcium (8.4-10.2) mg/dL Total Bilirubin (0.2-1.3) mg/dL AST (17-59) U/L ALT (4-49) U/L Alkaline Phosphatase (38-126) U/L Troponin I 0.058 H* (0.000-0.034) ng/mL NT-Pro-B Natriuret Pep pg/mL Total Protein (6.3-8.2) g/dL Albumin (3.5-5.0) g/dL Serum Alcohol mg/dL Disposition Clinical Impression: Elevated troponin, Alcoholic cirrhosis of liver Disposition: ADMITTED IP TO THIS HOSP Condition: Stable Is patient prescribed a controlled substance at d/c from ED?: No Referrals: None,Stated [Primary Care Provider] - 1-2 days Time of Disposition: 10:14 Decision to Admit Reason: Admit from EC Decision Date: 08/06/24 Decision Time: 10:14
[2024-08-06 09:27] LABS: Anisocytosis Moderate; Basophils % (A) 1 %; Eosinophils # (A) 0.1 k/uL (0-0.7); Eosinophils % (A) 2 %; HCT 30.3 % (39.0-53.0); HGB 9.5 gm/dL (13.0-17.5); Hypochromasia Marked; Lymphocytes # (A) 0.9 k/uL (1.0-4.8); Lymphocytes % (A) 23 %; MCH 25.7 pg (25.0-35.0); MCHC 31.2 g/dL (31.0-37.0); MCV 82.4 fL (80.0-100.0); Mean Platelet Volume 7.6; Microcytosis Slight; Monocytes # (A) 0.5 k/uL (0-1.0); Monocytes % (A) 12 %; Neutrophils # (A) 2.2 k/uL (1.3-7.7); Neutrophils % (A) 58 %; RBC 3.68 m/uL (4.30-5.90); RDW 20.9 % (11.5-15.5); WBC 3.9 k/uL (3.8-10.6)
[2024-08-06 09:32] LABS: ALT 49 U/L (4-49); AST 164 U/L (17-59); African American GFR (CKD) >90 (>60 ml/min/1.73 sqM); Albumin 2.5 g/dL (3.5-5.0); Alkaline Phosphatase 394 U/L (38-126); Anion Gap 7 mmol/L; Blood Urea Nitrogen 8 mg/dL (9-20); Calcium 7.9 mg/dL (8.4-10.2); Carbon Dioxide 30 mmol/L (22-30); Chloride 99 mmol/L (98-107); Glucose 133 mg/dL (74-99); Non-African American GFR(CKD) >90 (>60 ml/min/1.73 sqM); Potassium 2.8 mmol/L (3.5-5.1); Sodium 136 mmol/L (137-145); Total Bilirubin 9.1 mg/dL (0.2-1.3); Total Protein 6.4 g/dL (6.3-8.2)
[2024-08-06 09:40] LABS: Alcohol 88 mg/dL; NT-Pro-B-Type Natriuretic Pept 102 pg/mL
[2024-08-06 09:54] LABS: INR 2.2 (<1.2); Partial Thromboplastin Time 38.2 sec (22.0-30.0); Prothrombin Time 22.4 sec (10.0-12.5)
[2024-08-06 10:00] LABS: Target Cells Present
[2024-08-06 10:02] LABS: Anisocytosis (M) Present; Platelet Count 23 k/uL (150-450)
[2024-08-06] MEDS ORDERED: ONDANSETRON 4 MG/2 ML VIAL IVP PRN (10:14)
[2024-08-06] MEDS ORDERED: NALOXONE 0.4 MG/ML 1 ML VIAL IV PRN (10:14)
[2024-08-06] MEDS: POTASSIUM CHLORIDE ER 20 MEQ TAB.ER PO STA (11:20)
[2024-08-06] MEDS: POTASSIUM CHLORIDE 20 MEQ in WATER FOR INJECTION 1 100ML.BAG IVPB STA (11:21)
[2024-08-06 11:22] LABS: Bilirubin, Conjugated 2.3 mg/dL (0.0-0.3); Bilirubin, Delta 2.8 mg/dL (0.0-0.2); Bilirubin,Unconjugated 3.3 mg/dL (0.0-1.1); Total Bilirubin 8.4 mg/dL (0.2-1.3)
--- NOTE | 2024-08-06 12:22 | P.CRDCN ---
History of Present Illness History of present illness: HISTORY OF PRESENT ILLNESS: This is a 33-year-old male with a past medical history significant for alcohol abuse. Patient does not follow with a electrical system specialist. We have been asked to see th e patient in consultation for shortness of breath. Patient examined at the bedside in the emergency room. Patient presented to the hospital with a chief complaint of shortness of breath. Patient states he has been feeling short of breath for 1 day. He denies any chest pain or pressure. Patient reports daily alcohol use and states his last drink was yesterday. DIAGNOSTICS: - EKG reveals sinus mechanism with no signs of acute ischemia. - Chest xray negative for acute process - Laboratory data: WBC 3.9. Hemoglobin 9.5. Platelet count 23. INR 2.2. Sodium 136. Potassium 2.8. BUN 8. Creatinine 0.72. Magnesium 1.0. AST 164. ALT 49. Troponin 0.058. Serum alcohol 88. proBNP 102. - Current home cardiac medications include none -No previous echocardiogram, stress test, or cardiac catheterization available in EMR for review REVIEW OF SYSTEMS: At the time of my exam: CONSTITUTIONAL: Denies fever or chills. HEENT: Denies blurred vision, vision changes, or eye pain. Denies hemoptysis CARDIOVASCULAR: Denies chest pain. Denies orthopnea. Denies PND. Denies palpitations RESPIRATORY: Denies shortness of breath. GASTROINTESTINAL: Denies abdominal pain. Denies nausea or vomiting. HEMATOLOGIC: Denies bleeding disorders. GENITOURINARY: Denies any blood in urine. SKIN: Denies pruitis. Denies rash. PHYSICAL EXAM: VITAL SIGNS: Reviewed. GENERAL: Well-developed in no acute distress. HEENT: Head is normocephalic. Pupils are equal, round. Sclerae anicteric. Mucous membranes of the mouth are moist. Neck supple. No JVD or thyromegaly LUNGS: Respirations even and unlabored. Lungs essentially clear to auscultation bilaterally. HEART: Regular rate and rhythm. S1 and S2 heard. ABDOMEN: Soft. Nondistended. Nontender. EXTREMITIES: Normal range of motion. No clubbing or cyanosis. Peripheral pulses intact. No lower extremity edema NEUROLOGIC: Awake and alert. Oriented x 3. ASSESSMENT: Shortness of breath x 1 day, no evidence of CHF, proBNP within normal limits Anemia Severe thrombocytopenia, platelet count 23 Coagulopathy, INR 2.2, secondary to alcohol abuse Hypokalemia 2.8 on admission Hypomagnesemia, 1.0 on admission Transaminitis, secondary to alcohol abuse Minimally elevated troponin of unclear clinical significance, no evidence of myocardial injury or ischemia History of alcohol abuse PLAN: Obtain 2D echo to assess cardiac structure and function No evidence of congestive heart failure upon clinical examination. Chest x-ray without signs of CHF. proBNP within normal limits at 102. Recommend abstinence from alcohol Further recommendations pending patient course Nurse practitioner note has been reviewed by physician. Signing provider agrees with the documented findings, assessment, and plan of care documented by ORTHO/PROSTHETIC AIDE as a scribe. Past Medical History Additional Past Medical History / Comment(s): alcoholism , edema, jaundice History of Any Multi-Drug Resistant Organisms: None Reported Past Surgical History: Adenoidectomy Additional Past Surgical History / Comment(s): cyst Past Anesthesia/Blood Transfusion Reactions: No Reported Reaction Past Psychological History: No Psychological Hx Reported Smoking Status: Vaper Past Alcohol Use History: Abuse, Daily Past Drug Use History: None Reported Medications and Allergies Home Medications Medication Instructions Recorded Confirmed Type No Known Home Medications 08/06/24 08/06/24 History Allergies Allergy/AdvReac Type Severity Reaction Status Date / Time No Known Allergies Allergy Verified 08/06/24 11:26 Physical Exam Vitals: Vital Signs Temp Pulse Resp BP Pulse Ox 08/06/24 11:00 91 17 146/81 98 08/06/24 09:05 75 19 138/113 98 08/06/24 07:00 97.6 F 96 18 169/77 99 Intake and Output 08/05/24 08/06/24 08/06/24 22:59 06:59 14:59 Other: Weight 99.065 kg Results 08/06/24 08:08 08/06/24 08:08 Cardiac Enzymes 08/06/24 08/06/24 Range/Units 08:08 08:08 AST 164 H (17-59) U/L Troponin I 0.058 H* (0.000-0.034) ng/mL Coagulation 08/06/24 Range/Units 08:08 PT 22.4 H (10.0-12.5) sec APTT 38.2 H (22.0-30.0) sec CBC 08/06/24 Range/Units 08:08 WBC 3.9 (3.8-10.6) k/uL RBC 3.68 L (4.30-5.90) m/uL Hgb 9.5 L (13.0-17.5) gm/dL Hct 30.3 L (39.0-53.0) % Plt Count 23 L (150-450) k/uL Comprehensive Metabolic Panel 08/06/24 08/06/24 Range/Units 08:08 08:08 Sodium 136 L (137-145) mmol/L Potassium 2.8 L (3.5-5.1) mmol/L Chloride 99 (98-107) mmol/L Carbon Dioxide 30 (22-30) mmol/L BUN 8 L (9-20) mg/dL Creatinine 0.72 (0.66-1.25) mg/dL Glucose 133 H (74-99) mg/dL Calcium 7.9 L (8.4-10.2) mg/dL Unconjugated Bilirubin 3.3 H (0.0-1.1) mg/dL AST 164 H (17-59) U/L ALT 49 (4-49) U/L Alkaline Phosphatase 394 H (38-126) U/L Total Protein 6.4 (6.3-8.2) g/dL Albumin 2.5 L (3.5-5.0) g/dL Current Medications Generic Name Dose Route Start Last Admin Trade Name Freq PRN Reason Stop Dose Admin Potassium Chloride 20 meq/ IV 100 mls @ 50 mls/hr 08/06/24 10:23 08/06/24 11:21 Solution IVPB 08/06/24 12:22 50 mls/hr ONCE STA Administration Naloxone HCl 0.2 mg 08/06/24 10:14 Naloxone 0.4 Mg/Ml 1 Ml Vial IV Q2M PRN Opioid Reversal Ondansetron HCl 4 mg 08/06/24 10:14 Ondansetron 4 Mg/2 Ml Vial IVP Q8HR PRN Nausea And Vomiting Intake and Output 08/05/24 08/06/24 08/06/24 22:59 06:59 14:59 Other: Weight 99.065 kg Patient Weight 08/07/24 06:59 Weight 99.065 kg 08/06/24 08:08 08/06/24 08:08
[2024-08-06] MEDS ORDERED: LORazepam 2 MG/ML INJ IV PRN (12:45)
--- NOTE | 2024-08-06 12:47 | P.HPIM ---
History of Present Illness This is a pleasant 33 years old male with history of alcohol use disorder presents with alcohol withdrawal and alcohol intoxication. Serum alcohol was elevated 88 on admission and patient states that he drinks fifth of alcohol every day but he is willing to quit. He denies chest pain dyspnea or coughing. Mentation at baseline He just quit smoking as he states and he denies illicit drugs No specific GI/ symptoms. No headache dizziness weakness or numbness. No recent falling or confusion No chest pain no coughing. He vomited 1 time last night no blood in it. Bowel movement is good He denies depression or suicidal ideation or homicidal ideation He does not follow-up with PCP He is afebrile and labs and vital stable CBC showing anemia with hemoglobin 9.5 and platelet count low at 23. BMP and LFT unremarkable Troponin is elevated 0.058 Review of Systems Review of systems CONSTITUTIONAL: No fever, no malaise, no fatigue. HEENT: No recent visual problems or hearing problems. Denied any sore throat. CARDIOVASCULAR: No orthopnea, PND, no palpitations, no syncope. PULMONARY: No shortness of breath, no cough, no hemoptysis. GASTROINTESTINAL: No diarrhea, no nausea, no vomiting, no abdominal pain. Normoactive bowel sounds. NEUROLOGICAL: No headaches, no weakness, no numbness. HEMATOLOGICAL: Denies any bleeding or petechiae. GENITOURINARY: Denies any burning micturition, frequency, or urgency. MUSCULOSKELETAL/RHEUMATOLOGICAL: Denies any joint pain, swelling, or any muscle pain. ENDOCRINE: Denies any polyuria or polydipsia. Past Medical History Additional Past Medical History / Comment(s): alcoholism , edema, jaundice History of Any Multi-Drug Resistant Organisms: None Reported Past Surgical History: Adenoidectomy Additional Past Surgical History / Comment(s): cyst Past Anesthesia/Blood Transfusion Reactions: No Reported Reaction Past Psychological History: No Psychological Hx Reported Smoking Status: Vaper Past Alcohol Use History: Abuse, Daily Past Drug Use History: None Reported Medications and Allergies Home Medications Medication Instructions Recorded Confirmed Type No Known Home Medications 08/06/24 08/06/24 History Allergies Allergy/AdvReac Type Severity Reaction Status Date / Time No Known Allergies Allergy Verified 08/06/24 11:26 Physical Exam Vitals: Vital Signs Temp Pulse Resp BP Pulse Ox 08/06/24 12:16 78 18 144/75 99 08/06/24 11:00 91 17 146/81 98 08/06/24 09:05 75 19 138/113 98 08/06/24 07:00 97.6 F 96 18 169/77 99 Intake and Output 08/05/24 08/06/24 08/06/24 22:59 06:59 14:59 Other: Weight 99.065 kg GENERAL: The patient is alert and oriented x3, not in any acute distress. Well d eveloped, well nourished. HEENT: Pupils are round and equally reacting to light. EOMI. No scleral icterus. No conjunctival pallor. Normocephalic, atraumatic. No pharyngeal erythema. No thyromegaly. CARDIOVASCULAR: S1 and S2 present. No murmurs, rubs, or gallops. PULMONARY: Chest is clear to auscultation, no wheezing , no crackles. ABDOMEN: Soft, nontender, nondistended, normoactive bowel sounds. No palpable organomegaly. MUSCULOSKELETAL: No joint swelling or deformity. EXTREMITIES: No cyanosis, clubbing, or pedal edema. NEUROLOGICAL: Gross neurological examination did not reveal any focal deficits. SKIN: No rashes. no petechiae. Results CBC & Chem 7: 08/06/24 08:08 08/06/24 08:08 Labs: Abnormal Lab Results - Last 24 Hours (Table) 08/06/24 08/06/24 08/06/24 Range/Units 08:08 08:08 08:08 RBC 3.68 L (4.30-5.90) m/uL Hgb 9.5 L (13.0-17.5) gm/dL Hct 30.3 L (39.0-53.0) % RDW 20.9 H (11.5-15.5) % Plt Count 23 L (150-450) k/uL Lymphocytes # 0.9 L (1.0-4.8) k/uL PT 22.4 H (10.0-12.5) sec INR 2.2 H (<1.2) APTT 38.2 H (22.0-30.0) sec Sodium 136 L (137-145) mmol/L Potassium 2.8 L (3.5-5.1) mmol/L BUN 8 L (9-20) mg/dL Glucose 133 H (74-99) mg/dL Calcium 7.9 L (8.4-10.2) mg/dL Magnesium (1.6-2.3) mg/dL Total Bilirubin 9.1 H (0.2-1.3) mg/dL Conjugated Bilirubin (0.0-0.3) mg/dL Unconjugated Bilirubin (0.0-1.1) mg/dL Delta Bilirubin (0.0-0.2) mg/dL AST 164 H (17-59) U/L Alkaline Phosphatase 394 H (38-126) U/L Troponin I (0.000-0.034) ng/mL Albumin 2.5 L (3.5-5.0) g/dL 08/06/24 08/06/24 08/06/24 Range/Units 08:08 08:08 11:30 RBC (4.30-5.90) m/uL Hgb (13.0-17.5) gm/dL Hct (39.0-53.0) % RDW (11.5-15.5) % Plt Count (150-450) k/uL Lymphocytes # (1.0-4.8) k/uL PT (10.0-12.5) sec INR (<1.2) APTT (22.0-30.0) sec Sodium (137-145) mmol/L Potassium (3.5-5.1) mmol/L BUN (9-20) mg/dL Glucose (74-99) mg/dL Calcium (8.4-10.2) mg/dL Magnesium 1.0 L (1.6-2.3) mg/dL Total Bilirubin 8.4 H (0.2-1.3) mg/dL Conjugated Bilirubin 2.3 H (0.0-0.3) mg/dL Unconjugated Bilirubin 3.3 H (0.0-1.1) mg/dL Delta Bilirubin 2.8 H (0.0-0.2) mg/dL AST (17-59) U/L Alkaline Phosphatase (38-126) U/L Troponin I 0.058 H* 0.053 H* (0.000-0.034) ng/mL Albumin (3.5-5.0) g/dL Assessment and Plan Assessment: Alcohol use disorder Alcohol intoxication at risk of alcohol withdrawal Severe thrombocytopenia, most likely secondary to alcohol effect Anemia secondary to alcohol effect Coagulopathy Elevated troponin Plan: Continue with CIWA protocol Continue with thiamine Cardiology team consult Hematology team consult Monitor platelet count, hemoglobin and INR. Replace potassium and magnesium Check vitamin B12 and folate Echocardiogram Labs and medication were reviewed.. Continue same treatment. Continue with symptomatic treatment. Resume home medication. Monitor labs and vitals. DVT and GI prophylaxis. Further recommendations as per clinical course of the patient DVT prophylaxis: Subcutaneous heparin GI Prophylaxis: Pepcid PT/OT: Pending Prognosis is guarded
[2024-08-06] MEDS: MAGNESIUM OXIDE 400 MG TAB PO SCH (12:59)
[2024-08-06] MEDS: LORazepam 2 MG/ML INJ IV PRN (13:02)
[2024-08-06 18:14] LABS: T4, Free (Free Thyroxine) 1.95 ng/dL (0.78-2.19)
[2024-08-06 19:13] LABS: Hepatitis A Antibody IgM Nonreactive (Nonreactive); Hepatitis B Core IgM Nonreactive (Nonreactive); Hepatitis B Surface Antigen Nonreactive (Nonreactive); Hepatitis C IgG Antibody Nonreactive (Nonreactive)
--- NOTE | 2024-08-06 19:22 | P.CONS ---
History of Present Illness - Reason for Consult Consult date: 08/06/24 thrombocytopenia, coagulopathy Requesting physician: Clayton E Sheet - Chief Complaint SOB - History of Present Illness Patient is a 33-year-old male with a significant history of alcohol abuse. We are consulted due to thrombocytopenia and coagulopathy. Patient presented to the emergency room for shortness of breath. Patient states last night he began having worsening shortness of breath upon laying flat. Denies chest pain and dizziness. Denies abd pain, n/v. Patient states he drinks alcohol daily, approximately 1/2-3/4 of a fifth of whiskey daily. Patient denies hematochezia, melena and hematemesis. Labs reviewed, WBC 3.9, hemoglobin 9.5, MCV 82.4, MCHC 31.2, platelets 23,000. Differential showing marked hypochromasia. Upon review of EMR, in February 2023, patient was noted to have a hemoglobin of 5.4 and was given 2 units of blood at that time. Platelets were in the 70-80,000 range. Coags elevated, PT 22.4, INR 2.2, PTT 38.2. Bilirubin elevated at 9.1. AST 164, ALT 49, ALP 394. Troponin elevated at 0.058. Serum alcohol level 88. At today's visit patient is reporting some improvement in shortness of breath but is still having intermittent SOB. Patient stating he is wanting to quit drinking, and has a local AA group he plans on joining. Review of Systems 10 point ROS is negative except as stated in the HPI Past Medical History Additional Past Medical History / Comment(s): alcoholism , edema, jaundice History of Any Multi-Drug Resistant Organisms: None Reported Past Surgical History: Adenoidectomy Additional Past Surgical History / Comment(s): cyst Past Anesthesia/Blood Transfusion Reactions: No Reported Reaction Past Psychological History: No Psychological Hx Reported Smoking Status: Vaper Past Alcohol Use History: Abuse, Daily Past Drug Use History: None Reported - Past Family History Sister(s) Family Medical History: Diabetes Mellitus Father Family Medical History: Diabetes Mellitus Medications and Allergies Home Medications Medication Instructions Recorded Confirmed Type No Known Home Medications 08/06/24 08/06/24 History Allergies Allergy/AdvReac Type Severity Reaction Status Date / Time No Known Allergies Allergy Verified 08/06/24 11:26 Physical Exam Vitals: Vital Signs Temp Pulse Resp BP Pulse Ox 08/06/24 09:05 75 19 138/113 98 08/06/24 07:00 97.6 F 96 18 169/77 99 Intake and Output 08/05/24 08/06/24 08/06/24 22:59 06:59 14:59 Other: Weight 99.065 kg - Constitutional General appearance: average body habitus, no acute distress - EENT Eyes: EOMI, scleral icterus ENT: hearing grossly normal - Respiratory Respiratory: bilateral: CTA - Cardiovascular Rhythm: regular - Gastrointestinal General gastrointestinal: no distended, no hepatomegaly, soft, no tenderness - Integumentary Integumentary: no cyanotic - Neurologic Neurologic: CNII-XII intact - Psychiatric Psychiatric: A&O x's 3 Results CBC & Chem 7: 08/06/24 08:08 08/06/24 08:08 Labs: Abnormal Lab Results - Last 24 Hours (Table) 08/06/24 08/06/24 08/06/24 Range/Units 08:08 08:08 08:08 RBC 3.68 L (4.30-5.90) m/uL Hgb 9.5 L (13.0-17.5) gm/dL Hct 30.3 L (39.0-53.0) % RDW 20.9 H (11.5-15.5) % Plt Count 23 L (150-450) k/uL Lymphocytes # 0.9 L (1.0-4.8) k/uL PT 22.4 H (10.0-12.5) sec INR 2.2 H (<1.2) APTT 38.2 H (22.0-30.0) sec Sodium 136 L (137-145) mmol/L Potassium 2.8 L (3.5-5.1) mmol/L BUN 8 L (9-20) mg/dL Glucose 133 H (74-99) mg/dL Calcium 7.9 L (8.4-10.2) mg/dL Total Bilirubin 9.1 H (0.2-1.3) mg/dL AST 164 H (17-59) U/L Alkaline Phosphatase 394 H (38-126) U/L Troponin I (0.000-0.034) ng/mL Albumin 2.5 L (3.5-5.0) g/dL 08/06/24 Range/Units 08:08 RBC (4.30-5.90) m/uL Hgb (13.0-17.5) gm/dL Hct (39.0-53.0) % RDW (11.5-15.5) % Plt Count (150-450) k/uL Lymphocytes # (1.0-4.8) k/uL PT (10.0-12.5) sec INR (<1.2) APTT (22.0-30.0) sec Sodium (137-145) mmol/L Potassium (3.5-5.1) mmol/L BUN (9-20) mg/dL Glucose (74-99) mg/dL Calcium (8.4-10.2) mg/dL Total Bilirubin (0.2-1.3) mg/dL AST (17-59) U/L Alkaline Phosphatase (38-126) U/L Troponin I 0.058 H* (0.000-0.034) ng/mL Albumin (3.5-5.0) g/dL Chest x-ray: report reviewed Assessment and Plan (1) Thrombocytopenia Current Visit: Yes Status: Acute Priority: High Code(s): D69.6 - THROMBOCYTOPENIA, UNSPECIFIED SNOMED Code(s): 063686879 (2) Alcoholic cirrhosis of liver Current Visit: Yes Status: Acute Priority: High Code(s): K70.30 - ALCOHOLIC CIRRHOSIS OF LIVER WITHOUT ASCITES SNOMED Code(s): 277914851 (3) Anemia Current Visit: Yes Status: Acute Priority: High Code(s): D64.9 - ANEMIA, UNSPECIFIED SNOMED Code(s): 344539171 Plan: Thrombocytopenia, anemia, coagulopathy: Presented for shortness of breath, exacerbated upon laying flat. Patient has a history of ETOH abuse, stating he drinks alcohol daily, approximately 1/2-3/4 of a fifth of whiskey daily. Patient denies hematochezia, melena and hematemesis. -WBC 3.9, hemoglobin 9.5, MCV 82.4, MCHC 31.2, platelets 23,000. Differential showing marked hypochromasia. Upon review of EMR, in February 2023, patient was noted to have a hemoglobin of 5.4 and was given 2 units of blood at that time. Platelets were in the 70-80,000 range. He did not undergo endoscopic evaluation at that time. Coags elevated, PT 22.4, INR 2.2, PTT 38.2. Bilirubin elevated at 9.1. AST 164, ALT 49, ALP 394. -Will obtain thrombocytopenia workup and nutritional studies. Thrombocytopenia and coagulopathy secondary to ETOH abuse, liver disease. -Continue to closely monitor CBC and for s/s of acute bleeding. Transfuse for plts less than 10,000 or if symptomatic CIWA protocol in place. Alcohol cessation discussed. Patient stating he is wanting to quit drinking, and has a local AA group he plans on joining upon discharge Elevated troponin: -Cardiology following -ECHO ordered Doctor attests: I performed a history and physical examination of this patient, developed impression and plan of care. Discussed with dictator. I agree with dictators note, documented as a scribe.
--- NOTE | 2024-08-06 19:22 | CA ---
Transthoracic Echo Report Name: Robbin Tinsley Age: 33 Gender: M : 1990 Exam Date: 08/06/2024 14:28 Exam Location: [facility] Ht (in): 68 Wt (lb): 218 Ordering Physician: Aniya Palumbo DO Attending/Referring Phys: [id number], Deepali Assistant Art Director Madai Durant RDCS Procedure CPT: Indications: elevated trop, orthopnea Cardiac Hx: Technical Quality: Fair Contrast 1: Total Dose (mL): Contrast 2: Total Dose (mL): MEASUREMENTS (Male / Female) Normal Values 2D ECHO LV Diastolic Diameter PLAX 5.8 cm 4.2 - 5.9 / 3.9 - 5.3 cm LV Systolic Diameter PLAX 2.4 cm IVS Diastolic Thickness 1.1 cm 0.6 - 1.0 / 0.6 - 0.9 cm LVPW Diastolic Thickness 1.4 cm 0.6 - 1.0 / 0.6 - 0.9 cm LV Relative Wall Thickness 0.4 LVOT Diameter 2.5 cm LV Diastolic Volume MOD BP 201.5 cm??? 67 - 155 / 56 - 104 cm??? LV Systolic Volume MOD BP 80.1 cm??? 22 - 58 / 19 - 49 cm??? LV Ejection Fraction MOD BP 60.3 % >= 55 % LV Diastolic Volume MOD 4C 180.7 cm??? LV Systolic Volume MOD 4C 62.4 cm??? LV Ejection Fraction MOD 4C 65.4 % LV Diastolic Length 4C 8.9 cm LV Systolic Length 4C 6.7 cm LV Diastolic Volume MOD 2C 202.1 cm??? LV Systolic Volume MOD 2C 92.9 cm??? LV Ejection Fraction MOD 2C 54.0 % LV Diastolic Length 2C 9.6 cm LV Systolic Length 2C 7.5 cm LA Volume 109.5 cm??? 18 - 58 / 22 - 52 cm??? LA Volume Index 49.5 cm???/m??? 16 - 28 cm???/m??? DOPPLER MV Area PHT 3.1 cm??? Mitral E Point Velocity 113.5 cm/s Mitral A Point Velocity 80.7 cm/s Mitral E to A Ratio 1.4 MV Deceleration Time 241.9 ms FINDINGS Left Ventricle Mildly increased left ventricular wall thickness. Normal left ventricular systolic function with no obvious regional wall motion abnormalities. Right Ventricle Normal right ventricular size and function. Right ventricular systolic pressure within normal limits. Right Atrium Normal right atrial size. Left Atrium Severely increased left atrial volume. Mildly increased left atrial area. Mitral Valve Structurally normal mitral valve. Mild mitral regurgitation. Aortic Valve Trileaflet aortic valve. No aortic valve stenosis or regurgitation. Tricuspid Valve Structurally normal tricuspid valve. Mild tricuspid regurgitation. Pulmonic Valve Structurally normal pulmonic valve. Pericardium No pericardial effusion. Aorta Normal size aortic root and proximal ascending aorta. CONCLUSIONS Normal biventricular systolic function No significant valvular abnormalities noted No pericardial effusion Previewed by: Dr. Zack Sun MD (Electronically Signed) Final Date: 06 August 2024 19:21
[2024-08-06 21:52] LABS: HIV 2 AB Non-Reactive (Non-Reactive); HIV AB P24 Non-Reactive (Non-Reactive); HIV P24 AG Non-Reactive (Non-Reactive)
[2024-08-06] MEDS ORDERED: LORazepam 1 MG/0.5 ML VIAL IV PRN ×2 (23:56)
[2024-08-07 02:18] LABS: % Iron Saturation 46.87 (15.00-50.00); Ferritin 32.5 ng/mL (22.0-322.0); Iron 157 UG/DL (65-175); Total Iron Binding Capacity 335 UG/DL (228-460)
[2024-08-07 06:50] LABS: INR 2.2 (<1.2); Partial Thromboplastin Time 35.9 sec (22.0-30.0); Prothrombin Time 22.1 sec (10.0-12.5)
[2024-08-07] MEDS: THIAMINE 100 MG TAB PO SCH (09:25)
[2024-08-07 11:01] LABS: Basophils # (A) 0.05 X 10*3/uL (0.00-0.10); Basophils % (A) 1.3 %; Eosinophils # (A) 0.15 X 10*3/uL (0.04-0.35); Eosinophils % (A) 3.9 %; HGB 9.5 g/dL (13.0-17.0); Immature Platelet Fraction 12.4 % (1.1-6.1); Lymphocytes # (A) 1.11 X 10*3/uL (0.90-5.00); Lymphocytes % (A) 28.9 %; MCH 24.7 pg (27.0-32.0); MCHC 30.6 g/dL (32.0-37.0); MCV 80.5 FL (80.0-97.0); Monocytes # (A) 0.57 X 10*3/uL (0.20-1.00); Monocytes % (A) 14.8 %; NRBC Per 100 WBC 0 X 10*3/uL (0.00-0.01); Neutrophils # (A) 1.94 X 10*3/uL (1.80-7.70); Neutrophils % (A) 50.6 %; Platelet Count 37 X 10*3/uL (140-440); RBC 3.85 X 10*6/uL (4.40-5.60); RDW 24.3 % (11.5-14.5); Target Cells 2+ (None Seen); WBC 3.84 X 10*3/uL (4.50-10.00)
[2024-08-07] MEDS: SODIUM FERRIC GLUCONAT-SUCROSE 125 MG in SODIUM CHLORIDE 0.9% 100 ML IVPB SCH (12:14)
--- NOTE | 2024-08-07 13:11 | P.PN ---
Subjective Progress Note Date: 08/07/24 Principal diagnosis: Alcohol abuse with withdrawal -Afebrile, no acute events -Notes feeling improved today compared to admission and denies any new signs or symptoms Objective - Vital Signs Vital signs: Vital Signs Temp 98.4 F 08/07/24 07:09 Pulse 83 08/07/24 07:09 Resp 17 08/07/24 07:09 BP 158/83 08/07/24 07:09 Pulse Ox 99 08/07/24 07:09 FiO2 Intake & Output 08/06/24 08/07/24 08/07/24 18:59 06:59 18:59 Weight 99.065 kg Other: # Voids 3 - Constitutional Constitutional Comment(s): Appears more comfortable General appearance: Present: cooperative, no acute distress - EENT Eyes: Present: EOMI - Respiratory Details: Nonlabored breathing - Cardiovascular Details: Warm and well-perfused - Gastrointestinal General gastrointestinal: Present: soft. Absent: distended - Integumentary Integumentary: Absent: rash - Neurologic Neurologic: Present: CNII-XII intact. Absent: focal deficits - Labs CBC & Chem 7: 08/07/24 05:20 08/06/24 08:08 Labs: Abnormal Lab Results - Last 24 Hours (Table) 08/06/24 08/06/24 08/06/24 Range/Units 15:29 15:29 15:29 WBC (4.50-10.00) X 10*3/uL RBC (4.40-5.60) X 10*6/uL Hgb (13.0-17.0) g/dL Hct (39.6-50.0) % MCH (27.0-32.0) pg MCHC (32.0-37.0) g/dL RDW (11.5-14.5) % Plt Count (140-440) X 10*3/uL Immature Plt Fraction (1.1-6.1) % Target Cells (None Seen) PT (10.0-12.5) sec INR (<1.2) APTT (22.0-30.0) sec Fibrinogen 110 L (200-500) mg/dL Troponin I 0.057 H* (0.000-0.034) ng/mL Vitamin B12 1985.0 H (200.0-944.0) pg/mL TSH 17.500 H (0.465-4.680) mIU/L 08/07/24 08/07/24 Range/Units 05:20 05:20 WBC 3.84 L (4.50-10.00) X 10*3/uL RBC 3.85 L (4.40-5.60) X 10*6/uL Hgb 9.5 L (13.0-17.0) g/dL Hct 31.0 L (39.6-50.0) % MCH 24.7 L (27.0-32.0) pg MCHC 30.6 L (32.0-37.0) g/dL RDW 24.3 H (11.5-14.5) % Plt Count 37 A* (140-440) X 10*3/uL Immature Plt Fraction 12.4 H (1.1-6.1) % Target Cells 2+ A (None Seen) PT 22.1 H (10.0-12.5) sec INR 2.2 H (<1.2) APTT 35.9 H (22.0-30.0) sec Fibrinogen 94 L (200-500) mg/dL Troponin I (0.000-0.034) ng/mL Vitamin B12 (200.0-944.0) pg/mL TSH (0.465-4.680) mIU/L Assessment and Plan (1) Iron deficiency anemia due to dietary causes Current Visit: Yes Status: Acute Code(s): D50.8 - OTHER IRON DEFICIENCY ANEMIAS SNOMED Code(s): 570349020 (2) Alcoholic cirrhosis of liver Current Visit: Yes Status: Acute Priority: High Code(s): K70.30 - ALCOHOLIC CIRRHOSIS OF LIVER WITHOUT ASCITES SNOMED Code(s): 781197175 (3) Thrombocytopenia Current Visit: Yes Status: Acute Priority: High Code(s): D69.6 - THROMBOCYTOPENIA, UNSPECIFIED SNOMED Code(s): 654850782 Plan: Thrombocytopenia, coagulopathy: Presented for shortness of breath, exacerbated upon laying flat. Patient has a history of ETOH abuse, stating he drinks alcohol daily, approximately 1/2-3/4 of a fifth of whiskey daily. Patient denies hematochezia, melena and hematemesis. -WBC 3.9, hemoglobin 9.5, MCV 82.4, MCHC 31.2, platelets 23,000. Differential showing marked hypochromasia. Upon review of EMR, in February 2023, patient was noted to have a hemoglobin of 5.4 and was given 2 units of blood at that time. Platelets were in the 70-80,000 range. He did not undergo endoscopic evaluation at that time. Coags elevated, PT 22.4, INR 2.2, PTT 38.2. Bilirubin elevated at 9.1. AST 164, ALT 49, ALP 394. -Workup obtained revealed no evidence of deficiency and vitamin B12, folic acid, or thyroid hormone. HIV and hepatitis were negative -He has low fibrinogen secondary to underlying cirrhosis -Platelets on today's CBC were improved to 37 -Alcohol cessation was previously discussed and he is motivated to stop drinking Iron deficiency anemia: -Noted to have anemia with borderline microcytosis on admission -Ferritin was 32.5 with iron saturation 46.87% -He likely has iron deficiency secondary to poor oral intake and decreased absorption from alcohol abuse -IV iron ordered today daily for 4 treatments -We discussed that we can meet outpatient to reassess his iron status to see if additional iron will be required outpatient José Miguel Fortune MD
--- NOTE | 2024-08-07 14:33 | P.PN ---
Subjective Progress Note Date: 08/07/24 The patient is a 33-year-old gentleman with a past medical history significant for history of alcohol use as well as thrombocytopenia and anemia and multiple comorbid conditions who was admitted to the hospital with shortness of breath. Underwent an echo which revealed normal LV systolic function with no evidence of valvular abnormalities noted. August 07, 2024 The patient was seen and evaluated this morning. He is feeling better. The shortness of breath has improved. No symptoms of chest pain or chest discomfort. The thrombocytopenia has slightly improved. The pressure is elevated and consistent with stage II hypertension. I am going to start the patient on losartan at 25 mg p.o. daily. The physical examination is remarkable for regular rhythm with a soft systolic murmur and clear breathing sounds bilaterally and no edema was noted. ASSESSMENT: Shortness of breath x 1 day, no evidence of CHF, proBNP within normal limits and normal echocardiogram Anemia Hypertension Severe thrombocytopenia, platelet count 23 Coagulopathy, INR 2.2, secondary to alcohol abuse Hypokalemia 2.8 on admission Hypomagnesemia, 1.0 on admission Transaminitis, secondary to alcohol abuse Minimally elevated troponin of unclear clinical significance, no evidence of myocardial injury or ischemia History of alcohol abuse PLAN: The echo showed normal LV systolic function Start the patient on losartan Follow-up with the patient Objective - Vital Signs Vital signs: Vital Signs Temp 98.4 F 08/07/24 07:09 Pulse 83 08/07/24 07:09 Resp 17 08/07/24 07:09 BP 158/83 08/07/24 07:09 Pulse Ox 99 08/07/24 07:09 FiO2 Intake & Output 08/06/24 08/07/24 08/07/24 18:59 06:59 18:59 Weight 99.065 kg Other: # Voids 3 - Labs CBC & Chem 7: 08/07/24 05:20 08/06/24 08:08 Labs: Abnormal Lab Results - Last 24 Hours (Table) 08/06/24 08/06/24 08/06/24 Range/Units 15:29 15:29 15:29 WBC (4.50-10.00) X 10*3/uL RBC (4.40-5.60) X 10*6/uL Hgb (13.0-17.0) g/dL Hct (39.6-50.0) % MCH (27.0-32.0) pg MCHC (32.0-37.0) g/dL RDW (11.5-14.5) % Plt Count (140-440) X 10*3/uL Immature Plt Fraction (1.1-6.1) % Target Cells (None Seen) PT (10.0-12.5) sec INR (<1.2) APTT (22.0-30.0) sec Fibrinogen 110 L (200-500) mg/dL Troponin I 0.057 H* (0.000-0.034) ng/mL Vitamin B12 1985.0 H (200.0-944.0) pg/mL TSH 17.500 H (0.465-4.680) mIU/L 08/07/24 08/07/24 Range/Units 05:20 05:20 WBC 3.84 L (4.50-10.00) X 10*3/uL RBC 3.85 L (4.40-5.60) X 10*6/uL Hgb 9.5 L (13.0-17.0) g/dL Hct 31.0 L (39.6-50.0) % MCH 24.7 L (27.0-32.0) pg MCHC 30.6 L (32.0-37.0) g/dL RDW 24.3 H (11.5-14.5) % Plt Count 37 A* (140-440) X 10*3/uL Immature Plt Fraction 12.4 H (1.1-6.1) % Target Cells 2+ A (None Seen) PT 22.1 H (10.0-12.5) sec INR 2.2 H (<1.2) APTT 35.9 H (22.0-30.0) sec Fibrinogen 94 L (200-500) mg/dL Troponin I (0.000-0.034) ng/mL Vitamin B12 (200.0-944.0) pg/mL TSH (0.465-4.680) mIU/L
[2024-08-07 15:21] LABS: ALT 45 U/L (4-49); AST 132 U/L (17-59); African American GFR (CKD) >90 (>60 ml/min/1.73 sqM); Albumin 2.8 g/dL (3.5-5.0); Albumin/Globulin Ratio 0.7; Alkaline Phosphatase 285 U/L (38-126); Anion Gap 6 mmol/L; Bilirubin, Conjugated 4.2 mg/dL (0.0-0.3); Bilirubin,Unconjugated 3.4 mg/dL (0.0-1.1); Blood Urea Nitrogen 11 mg/dL (9-20); Calcium 8.1 mg/dL (8.4-10.2); Carbon Dioxide 28 mmol/L (22-30); Chloride 98 mmol/L (98-107); Globulin 4.1 g/dL; Glucose 74 mg/dL (74-99); Non-African American GFR(CKD) >90 (>60 ml/min/1.73 sqM); Potassium 3.2 mmol/L (3.5-5.1); Sodium 132 mmol/L (137-145); Total Bilirubin 10.8 mg/dL (0.2-1.3); Total Protein 6.9 g/dL (6.3-8.2)
[2024-08-07] MEDS ORDERED: Potassium Replacement Protocol 1 EACH MISC MISCELLANE PRN (15:27)
[2024-08-07] MEDS: POTASSIUM CHLORIDE ER 20 MEQ TAB.ER PO SCH (17:03)
[2024-08-07] MEDS: LOSARTAN 25 MG TAB PO SCH (17:03)
[2024-08-07] MEDS: MAGNESIUM SULFATE-D5W PMX 1 GM in DEXTROSE/WATER 1 100ML.BAG IVPB SCH (17:04)
--- NOTE | 2024-08-07 17:20 | P.PN ---
Subjective This is a pleasant 33 years old male with history of alcohol use disorder presents with alcohol withdrawal and alcohol intoxication. Serum alcohol was elevated 88 on admission and patient states that he drinks fifth of alcohol every day but he is willing to quit. He denies chest pain dyspnea or coughing. Mentation at baseline He just quit smoking as he states and he denies illicit drugs No specific GI/ symptoms. No headache dizziness weakness or numbness. No recent falling or confusion No chest pain no coughing. He vomited 1 time last night no blood in it. Bowel movement is good He denies depression or suicidal ideation or homicidal ideation He does not follow-up with PCP He is afebrile and labs and vital stable CBC showing anemia with hemoglobin 9.5 and platelet count low at 23. BMP and LFT unremarkable Troponin is elevated 0.058 08/07 Patient clinically doing well He denies chest pain or dyspnea. 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 HEENT: No recent visual problems or hearing problems. Denied any sore throat. CARDIOVASCULAR: No orthopnea, PND, no palpitations, no syncope. PULMONARY: No shortness of breath, no cough, no hemoptysis. GASTROINTESTINAL: No diarrhea, no nausea, no vomiting, no abdominal pain. Normoactive bowel sounds. NEUROLOGICAL: No headaches, no weakness, no numbness. HEMATOLOGICAL: Denies any bleeding or petechiae. Active Medications Generic Name Dose Route Start Last Admin Trade Name Freq PRN Reason Stop Dose Admin Chlordiazepoxide HCl 20 mg 08/06/24 16:00 08/07/24 09:25 Chlordiazepoxide 10 Mg Cap PO 20 mg TID JACEK Administration Folic Acid 1 mg 08/07/24 17:30 Folic Acid 1 Mg Tab PO DAILY [facility] Ferric Sodium Gluconate 125 mg 110 mls @ 100 mls/hr 08/07/24 11:00 08/07/24 12:14 / Sodium Chloride IVPB 08/10/24 10:05 100 mls/hr DAILY JACEK Administration Magnesium Sulfate/Dextrose 1 100 mls @ 100 mls/hr 08/07/24 15:30 08/07/24 17:04 gm/ IV Solution IVPB 08/07/24 17:29 100 mls/hr Q1H JACEK Administration Lorazepam 2 mg 08/06/24 23:56 Lorazepam 1 Mg/0.5 Ml Vial IV 08/08/24 12:45 Q10M PRN CIWA 16 or higher Lorazepam 1 mg 08/06/24 23:56 Lorazepam 1 Mg/0.5 Ml Vial IV Q2HR PRN CIWA 8 or 9 Losartan Potassium 25 mg 08/07/24 14:45 08/07/24 17:03 Losartan 25 Mg Tab PO 25 mg DAILY JACEK Administration Magnesium Oxide 400 mg 08/06/24 13:00 08/07/24 17:03 Magnesium Oxide 400 Mg Tab PO 08/09/24 12:59 400 mg TID JACEK Administration Miscellaneous Information 1 each 08/07/24 15:27 Potassium Replacement Protocol 1 Each Misc MISCELLANE DAILY PRN Per Protocol Protocol Naloxone HCl 0.2 mg 08/06/24 10:14 Naloxone 0.4 Mg/Ml 1 Ml Vial IV Q2M PRN Opioid Reversal Ondansetron HCl 4 mg 08/06/24 10:14 Ondansetron 4 Mg/2 Ml Vial IVP Q8HR PRN Nausea And Vomiting Potassium Chloride 20 meq 08/07/24 17:00 08/07/24 17:03 Potassium Chloride Er 20 Meq Tab.Er PO 08/07/24 18:01 20 meq Q1HR JACEK Administration Thiamine HCl 100 mg 08/07/24 09:00 08/07/24 09:25 Thiamine 100 Mg Tab PO 100 mg DAILY JACEK Administration Objective - Vital Signs Vital signs: Vital Signs Temp 98.6 F 08/07/24 14:27 Pulse 77 08/07/24 17:00 Resp 14 08/07/24 17:00 BP 152/80 08/07/24 17:00 Pulse Ox 100 08/07/24 17:00 FiO2 Intake & Output 08/06/24 08/07/24 08/07/24 18:59 06:59 18:59 Intake Total 820 Balance 820 Weight 99.065 kg Intake: Oral 820 Other: # Voids 3 2 - Exam GENERAL: The patient is alert and oriented x3, not in any acute distress. Well developed, well nourished. HEENT: Pupils are round and equally reacting to light. EOMI. No scleral icterus. No conjunctival pallor. Normocephalic, atraumatic. No pharyngeal erythema. No thyromegaly. CARDIOVASCULAR: S1 and S2 present. No murmurs, rubs, or gallops. PULMONARY: Chest is clear to auscultation, no wheezing , no crackles. ABDOMEN: Soft, nontender, nondistended, normoactive bowel sounds. No palpable organomegaly. MUSCULOSKELETAL: No joint swelling or deformity. EXTREMITIES: No cyanosis, clubbing, or pedal edema. NEUROLOGICAL: Gross neurological examination did not reveal any focal deficits. SKIN: No rashes. no petechiae. - Labs CBC & Chem 7: 08/07/24 05:20 08/07/24 05:20 Labs: Abnormal Lab Results - Last 24 Hours (Table) 08/06/24 08/07/24 08/07/24 Range/Units 15:29 05:20 05:20 WBC 3.84 L (4.50-10.00) X 10*3/uL RBC 3.85 L (4.40-5.60) X 10*6/uL Hgb 9.5 L (13.0-17.0) g/dL Hct 31.0 L (39.6-50.0) % MCH 24.7 L (27.0-32.0) pg MCHC 30.6 L (32.0-37.0) g/dL RDW 24.3 H (11.5-14.5) % Plt Count 37 A* (140-440) X 10*3/uL Immature Plt Fraction 12.4 H (1.1-6.1) % Target Cells 2+ A (None Seen) PT (10.0-12.5) sec INR (<1.2) APTT (22.0-30.0) sec Fibrinogen (200-500) mg/dL Sodium 132 L (137-145) mmol/L Potassium 3.2 L (3.5-5.1) mmol/L Calcium 8.1 L (8.4-10.2) mg/dL Magnesium 1.0 L (1.6-2.3) mg/dL Total Bilirubin 10.8 H (0.2-1.3) mg/dL Conjugated Bilirubin 4.2 H (0.0-0.3) mg/dL Unconjugated Bilirubin 3.4 H (0.0-1.1) mg/dL AST 132 H (17-59) U/L Alkaline Phosphatase 285 H (38-126) U/L Albumin 2.8 L (3.5-5.0) g/dL Vitamin B12 1985.0 H (200.0-944.0) pg/mL 08/07/24 Range/Units 05:20 WBC (4.50-10.00) X 10*3/uL RBC (4.40-5.60) X 10*6/uL Hgb (13.0-17.0) g/dL Hct (39.6-50.0) % MCH (27.0-32.0) pg MCHC (32.0-37.0) g/dL RDW (11.5-14.5) % Plt Count (140-440) X 10*3/uL Immature Plt Fraction (1.1-6.1) % Target Cells (None Seen) PT 22.1 H (10.0-12.5) sec INR 2.2 H (<1.2) APTT 35.9 H (22.0-30.0) sec Fibrinogen 94 L (200-500) mg/dL Sodium (137-145) mmol/L Potassium (3.5-5.1) mmol/L Calcium (8.4-10.2) mg/dL Magnesium (1.6-2.3) mg/dL Total Bilirubin (0.2-1.3) mg/dL Conjugated Bilirubin (0.0-0.3) mg/dL Unconjugated Bilirubin (0.0-1.1) mg/dL AST (17-59) U/L Alkaline Phosphatase (38-126) U/L Albumin (3.5-5.0) g/dL Vitamin B12 (200.0-944.0) pg/mL Assessment and Plan Assessment: Alcohol use disorder Alcohol intoxication at risk of alcohol withdrawal Severe thrombocytopenia, most likely secondary to alcohol effect Anemia secondary to alcohol effect. Iron deficiency anemia Coagulopathy Elevated troponin. Echocardiogram showed preserved function. Coronary artery disease ruled out Borderline low folic acid Low fibrinogen secondary to alcohol effect Plan: Continue with CIWA protocol Continue with thiamine Cardiology team consult Hematology team consult Monitor platelet count, hemoglobin and INR. Replace potassium and magnesium Getting IV iron per hematology team Start folate replacement Labs and medication were reviewed.. Continue same treatment. Continue with symptomatic treatment. Resume home medication. Monitor labs and vitals. DVT and GI prophylaxis. Further recommendations as per clinical course of the patient DVT prophylaxis: no Subcutaneous heparin secondary to coagulopathy and hematol ogical abnormality GI Prophylaxis: Pepcid Prognosis is guarded
[2024-08-07] MEDS: FOLIC ACID 1 MG TAB PO SCH (18:29)
[2024-08-08 07:44] LABS: African American GFR (CKD) >90 (>60 ml/min/1.73 sqM); Anion Gap 8 mmol/L; Blood Urea Nitrogen 11 mg/dL (9-20); Calcium 8.1 mg/dL (8.4-10.2); Carbon Dioxide 26 mmol/L (22-30); Chloride 102 mmol/L (98-107); Glucose 81 mg/dL (74-99); Magnesium 1.5 mg/dL (1.6-2.3); Non-African American GFR(CKD) >90 (>60 ml/min/1.73 sqM); Potassium 3.5 mmol/L (3.5-5.1); Sodium 136 mmol/L (137-145)
[2024-08-08 10:37] LABS: Basophils # (A) 0.07 X 10*3/uL (0.00-0.10); Basophils % (A) 1.5 %; Eosinophils # (A) 0.25 X 10*3/uL (0.04-0.35); Eosinophils % (A) 5.4 %; HCT 32.2 % (39.6-50.0); HGB 9.7 g/dL (13.0-17.0); Immature Platelet Fraction 11.2 % (1.1-6.1); Lymphocytes # (A) 1.14 X 10*3/uL (0.90-5.00); Lymphocytes % (A) 24.7 %; MCH 25.1 pg (27.0-32.0); MCHC 30.1 g/dL (32.0-37.0); MCV 83.4 FL (80.0-97.0); Monocytes # (A) 0.64 X 10*3/uL (0.20-1.00); Monocytes % (A) 13.9 %; NRBC Per 100 WBC 0 X 10*3/uL (0.00-0.01); Neutrophils # (A) 2.48 X 10*3/uL (1.80-7.70); Neutrophils % (A) 53.8 %; Platelet Count 43 X 10*3/uL (140-440); RBC 3.86 X 10*6/uL (4.40-5.60); RDW 24.1 % (11.5-14.5); WBC 4.61 X 10*3/uL (4.50-10.00)
--- NOTE | 2024-08-08 12:56 | P.PN ---
Subjective Progress Note Date: 08/08/24 The patient is a 33-year-old gentleman with a past medical history significant for history of alcohol use as well as thrombocytopenia and anemia and multiple comorbid conditions who was admitted to the hospital with shortness of breath. Underwent an echo which revealed normal LV systolic function with no evidence of valvular abnormalities noted. August 07, 2024 The patient was seen and evaluated this morning. He is feeling better. The shortness of breath has improved. No symptoms of chest pain or chest discomfort. The thrombocytopenia has slightly improved. The pressure is elevated and consistent with stage II hypertension. I am going to start the patient on losartan at 25 mg p.o. daily. The physical examination is remarkable for regular rhythm with a soft systolic murmur and clear breathing sounds bilaterally and no edema was noted. August 08, 2024 The patient was seen and evaluated this morning with he is asymptomatic. The pressure has improved after we added losartan to the current medical regimen. From a cardiovascular standpoint of view, I would continue the current medical regimen and the patient potentially can be discharged home ASSESSMENT: Shortness of breath x 1 day, no evidence of CHF, proBNP within normal limits and normal echocardiogram Anemia Hypertension Severe thrombocytopenia, platelet count 23 Coagulopathy, INR 2.2, secondary to alcohol abuse Hypokalemia 2.8 on admission Hypomagnesemia, 1.0 on admission Transaminitis, secondary to alcohol abuse Minimally elevated troponin of unclear clinical significance, no evidence of myocardial injury or ischemia History of alcohol abuse PLAN: The echo showed normal LV systolic function The patient can be discharged home Objective - Vital Signs Vital signs: Vital Signs Temp 99.0 F 08/08/24 07:31 Pulse 91 08/08/24 07:31 Resp 18 08/08/24 07:31 BP 124/71 08/08/24 07:31 Pulse Ox 99 08/08/24 07:31 FiO2 Intake & Output 08/07/24 08/08/24 08/08/24 18:59 06:59 18:59 Intake Total 820 Balance 820 Intake: Oral 820 Other: # Voids 2 1 - Labs CBC & Chem 7: 08/08/24 06:09 08/08/24 06:09 Labs: Abnormal Lab Results - Last 24 Hours (Table) 08/07/24 08/08/24 08/08/24 Range/Units 05:20 06:09 06:09 RBC 3.86 L (4.40-5.60) X 10*6/uL Hgb 9.7 L (13.0-17.0) g/dL Hct 32.2 L (39.6-50.0) % MCH 25.1 L (27.0-32.0) pg MCHC 30.1 L (32.0-37.0) g/dL RDW 24.1 H (11.5-14.5) % Plt Count 43 A* (140-440) X 10*3/uL Immature Plt Fraction 11.2 H (1.1-6.1) % Sodium 132 L 136 L (137-145) mmol/L Potassium 3.2 L (3.5-5.1) mmol/L Calcium 8.1 L 8.1 L (8.4-10.2) mg/dL Magnesium 1.0 L 1.5 L (1.6-2.3) mg/dL Total Bilirubin 10.8 H (0.2-1.3) mg/dL Conjugated Bilirubin 4.2 H (0.0-0.3) mg/dL Unconjugated Bilirubin 3.4 H (0.0-1.1) mg/dL AST 132 H (17-59) U/L Alkaline Phosphatase 285 H (38-126) U/L Albumin 2.8 L (3.5-5.0) g/dL Vitamin B12 2135.0 H (200.0-944.0) pg/mL TSH 8.010 H (0.465-4.680) mIU/L
--- NOTE | 2024-08-08 18:31 | P.PN ---
Subjective This is a pleasant 33 years old male with history of alcohol use disorder presents with alcohol withdrawal and alcohol intoxication. Serum alcohol was elevated 88 on admission and patient states that he drinks fifth of alcohol every day but he is willing to quit. He denies chest pain dyspnea or coughing. Mentation at baseline He just quit smoking as he states and he denies illicit drugs No specific GI/ symptoms. No headache dizziness weakness or numbness. No recent falling or confusion No chest pain no coughing. He vomited 1 time last night no blood in it. Bowel movement is good He denies depression or suicidal ideation or homicidal ideation He does not follow-up with PCP He is afebrile and labs and vital stable CBC showing anemia with hemoglobin 9.5 and platelet count low at 23. BMP and LFT unremarkable Troponin is elevated 0.058 08/07 Patient clinically doing well He denies chest pain or dyspnea. No other new complaints Hemodynamically stable Labs look basically the same, hemoglobin the same 9.5, platelet slightly improved to 37, INR the same 2.2 sodium 132 potassium low 3.2 and low magnesium 1.0 which has been replaced Folic acid borderline which is replaced Also he is getting IV iron for iron deficiency anemia or possible title curative specialist I discussed the case with hematology team most likely patient has nutritional deficiency secondary to alcohol effect regarding his hematological abnormality besides the fact of toxicity from alcoholism Echocardiogram showed preserved ejection fraction losartan was added 08/08 Patient is awake alert He is asymptomatic All labs improving, WBC normal, hemoglobin slightly up to 9.7, platelets keep trending up 43 today. Electrolytes improved potassium 3.5, magnesium 1.5 which has been replaced still TSH is coming down to 8.0. Echocardiogram showed preserved ejection fraction cardiology cleared him for discharge If patient keeps improving possible discharge in 24 to 48 hours Objective - Vital Signs Vital signs: Vital Signs Temp 98.5 F 08/08/24 13:54 Pulse 96 08/08/24 13:54 Resp 17 08/08/24 13:54 BP 128/74 08/08/24 13:54 Pulse Ox 99 08/08/24 13:54 FiO2 Intake & Output 08/07/24 08/08/24 08/08/24 18:59 06:59 18:59 Intake Total 820 Balance 820 Intake: Oral 820 Other: # Voids 2 1 1 - Exam GENERAL: The patient is alert and oriented x3, not in any acute distress. Well developed, well nourished. HEENT: Pupils are round and equally reacting to light. EOMI. No scleral icterus. No conjunctival pallor. Normocephalic, atraumatic. No pharyngeal erythema. No thyromegaly. CARDIOVASCULAR: S1 and S2 present. No murmurs, rubs, or gallops. PULMONARY: Chest is clear to auscultation, no wheezing , no crackles. ABDOMEN: Soft, nontender, nondistended, normoactive bowel sounds. No palpable organomegaly. MUSCULOSKELETAL: No joint swelling or deformity. EXTREMITIES: No cyanosis, clubbing, or pedal edema. NEUROLOGICAL: Gross neurological examination did not reveal any focal deficits. SKIN: No rashes. no petechiae. - Labs CBC & Chem 7: 08/08/24 06:09 08/08/24 06:09 Labs: Abnormal Lab Results - Last 24 Hours (Table) 08/07/24 08/08/24 08/08/24 Range/Units 05:20 06:09 06:09 RBC 3.86 L (4.40-5.60) X 10*6/uL Hgb 9.7 L (13.0-17.0) g/dL Hct 32.2 L (39.6-50.0) % MCH 25.1 L (27.0-32.0) pg MCHC 30.1 L (32.0-37.0) g/dL RDW 24.1 H (11.5-14.5) % Plt Count 43 A* (140-440) X 10*3/uL Immature Plt Fraction 11.2 H (1.1-6.1) % Sodium 136 L (137-145) mmol/L Calcium 8.1 L (8.4-10.2) mg/dL Magnesium 1.5 L (1.6-2.3) mg/dL Vitamin B12 2135.0 H (200.0-944.0) pg/mL TSH 8.010 H (0.465-4.680) mIU/L Assessment and Plan Assessment: Alcohol use disorder Alcohol intoxication at risk of alcohol withdrawal Severe thrombocytopenia, most likely secondary to alcohol effect Anemia secondary to alcohol effect. Iron deficiency anemia Coagulopathy Elevated troponin. Echocardiogram showed preserved function. Coronary artery disease ruled out Borderline low folic acid Low fibrinogen secondary to alcohol effect Plan: Continue with [facility] protocol Continue with thiamine Cardiology team consult Hematology team consult Monitor platelet count, hemoglobin and INR. Replace potassium and magnesium Getting IV iron per hematology team Start folate replacement Labs and medication were reviewed.. Continue same treatment. Continue with symptomatic treatment. Resume home medication. Monitor labs and vitals. DVT and GI prophylaxis. Further recommendations as per clinical course of the patient DVT prophylaxis: no Subcutaneous heparin secondary to coagulopathy and hematological abnormality GI Prophylaxis: Pepcid Prognosis is guarded
[2024-08-08] MEDS: POTASSIUM CHLORIDE ER 20 MEQ TAB.ER PO STA (19:59)
[2024-08-08] MEDS: MAGNESIUM SULFATE-D5W PMX 1 GM in DEXTROSE/WATER 1 100ML.BAG IVPB SCH (20:00)
[2024-08-08 20:53] VITALS: RESP 16
[2024-08-09 08:21] VITALS: BP 137/75; PULSE 92; TEMP 98.2
[2024-08-10 04:02] LABS: Methylmalonic Acid <0.10 umol/L (<0.40)
== END 2024-08-09 13:58 | disposition home or self-care (01) | DRG 775 ==
LOC: EC 06:41 → 6NMEDSUR 10:25 → OBSVTOIN 10:26 → 6NMEDSUR 14:25
PROVIDERS: ADMIT Internal Medicine; ATTEND Internal Medicine
DX: F10.229 Alcohol dependence with intoxication, unspecified (principal); F10.239 Alcohol dependence with withdrawal, unspecified; R79.89 Other specified abnormal findings of blood chemistry; I10 Essential (primary) hypertension; K70.30 Alcoholic cirrhosis of liver without ascites; Y90.4 Blood alcohol level of 80-99 mg/100 ml; E87.6 Hypokalemia; E83.42 Hypomagnesemia; E63.9 Nutritional deficiency, unspecified; D69.59 Other secondary thrombocytopenia; D68.9 Coagulation defect, unspecified; D50.8 Other iron deficiency anemias; Z87.891 Personal history of nicotine dependence
CPT/HCPCS: 36415; 71046; 80048; 80053; 80074; 80076; 80320; 82248; 82607; 82728; 82746; 82747; 83540; 83550; 83735; 83880; 83921; 84439; 84443; 84484; 85025; 85384; 85610; 85730; 87390; 93005; 93306; 96365; 96366; 96375; 99285